=== PATIENT | male | born 1965 | race Caucasian/White ===

== ENCOUNTER 2024-11-27 16:56 | Inpatient (IN) | payer OTHER ==
[~2024-11-27] VITALS: Ht 182.9 cm; Wt 74.6 kg
--- NOTE | 2024-11-27 17:37 | ED.PDOC ---
Musculoskeletal HPI Comments 59 y/o M is BIBA for c/o bilateral feet pain, that worsens with movement and palpation, for the past 2-3 weeks, today. He describes pain as sharp and shooting in quality and being unable to walk and bear weight on his legs, due to pain. Patient reports on recent DVT diagnosis and Xarelto placement (formerly on Plav ix). He denies any recent injuries or any history of rheumatoid disease or gout. Patient denies any chest pain, shortness of breath, numbness, tingling, weakness, fever, chills, or other associated symptoms at this time. Vitals on scene: blood pressure of 158/103, pulse rate of 81, SpO2 of 86%RA, and a respiratory of 18 Vitals upon ED arrival: blood pressure of 165/106, pulse rate of 80, SpO2 of 96% on 6LPM O2, and respiratory rate of 20 Past medical history: DVT's on Xarelto, HTN Past surgical history: denies Aaron: feet pain b/l HPI: Poor Historian. Patient was on Xarelto. Patient states compliance with the medications. Recent diagnosis of bilateral lower extremity DVT. Past Medical History: Past Surgical History: REVIEW OF SYSTEMS: CONSTITUTIONAL: Denies acute: fever, diaphoresis, chills, generalized weakness. HEAD: Denies acute: headache, photophobia Eyes: Denies acute: Double vision, vision loss, eye pain, eye discharge. EARS: Denies acute: tinnitus, hearing loss, ear discharge, ear pain, THROAT: Denies acute: sore throat, swelling, difficulty swallowing , pain with swallowing, change in voice. NECK: Denies acute: neck pain, neck swelling, stiff neck. HEART: Denies acute : chest pain, palpitations, LUNGS: Denies acute: SOB, wheezing, cough, hemoptysis ABDOMEN: Denies acute: abdominal pain, Nausea, Vomiting, diarrhea, melena , hematemesis, hematochezia SKIN: Denies acute: rash, , , itchiness. EXTREMITIES: Denies acute: calf pain, numbness, tingling, weakness, Denies acute: Low back pain. Neuro: Denies acute: focal neurological deficit, motor or sensory focal neurological deficit, tremors, seizure like activity, confusion, dizziness, change in mental status, loss of bowel or bladder function, cauda equina like symptoms. : Denies acute: dysuria, hematuria, flank pain, increase in urinary frequency. PSYCH: Denies acute: hallucination, suicidal ideation, homicidal ideation. PHYSICAL EXAM: General: ---mild-----acute distress, awake and alert. Head: normocephalic, atraumatic. Neck: supple, trachea is midline, no swelling. Throat: Normal phonation. Eyes:, no erythema, no purulent discharge, no proptosis, no icterus. Heart: regular rate, regular rhythm, no significant murmur appreciated. Lungs: no apparent respiratory distress, Able to speak in full sentences. No wheezing, no rhonchi, no crackles. No stridors Clear to auscultation bilaterally. Abdomen: non tender to palpation, non distended, soft, no guarding, no rebound, + bowel sounds. Neuro: Awake, Alert, oriented to name, self, situation, follows commands GCS=15. Speech is normal. Skin: no petechia, no purpura, no cyanosis, non-pale, not jaundice. Lower extremities: --no - Pitting edema no deformity, no calf TTP. Patient is neurovascularly intact in bilateral feet. Patient motor and sensory are present. There is on each feet there is medial and lateral focal points of erythema that is very tender to palpation. Makes eye contact. moves all four extremities. Face: no apparent facial droop Ambulating in the ED independently. Pedal pulses are palpable. ED COURSE: Chief Complaint: Lower Extremity Time Seen by MD: 17:20 Reviewed Notes: Nurses Notes, Medications, Allergies Allergies: Coded Allergies: NO KNOWN ALLERGIES (Unverified , 11/27/24) Home Meds Reported Medications Albuterol Sulfate (Albuterol Sulfate Hfa) 108 Mcg/Act Aer, INH 11/29/24 Minocycline HCl (Minocycline Hydrochloride) 100 Mg Cap, 1 CAP PO BID 11/29/24 Rivaroxaban (Xarelto Tablet) 15 Mg Tb, 1 TAB PO BID 11/29/24 Information Source: Patient Mode of Arrival: EMS Location: Bilateral Past Medical History PAST MEDICAL HISTORY: HTN Past Medical History (Other): DVT on Xarelto Was a procedure done? Was a procedure done?: No Differential Diagnosis EXT Differential Diagnosis: Cellulitis, CHF, Deep Vein Thrombosis, Compartment Syndrome, Fracture, Sprain, Dislocation, Gout, DJD, Myocardial Infarction, Contusion, Strain, Rheumatoid, Septic, Neurovascular injury, Arthritis, Bursitis X-Ray, Labs, Meds, VS Vital Signs Date Time Temp Pulse Resp B/P (MAP) Pulse Ox O2 Delivery O2 Flow Rate FiO2 11/27/24 21:50 136/62 11/27/24 21:47 72 17 125/79 (94) 98 11/27/24 19:30 98.3 68 16 129/87 (101) 100 98.3 11/27/24 19:30 68 16 100 Nasal Cannula* 2 28 11/27/24 18:00 98.4 71 10 159/93 (115) 98 98.4 11/27/24 17:23 98.7 72 24 165/106 (125) 91 98.7 11/27/24 17:17 72 12 154/92 (112) 98 11/27/24 17:00 Room Air* 0 21 Lab Test 11/27/24 20:59 11/27/24 20:20 11/27/24 19:02 11/27/24 18:08 Range/Units Troponin I High Sensitivity < 3 L < 3 L < 3 L </=54 ng/L Urine Color Light-orange Yellow Urine Clarity Clear Clear Urine pH 6.5 5.0-9.0 Urine Specific [place] 1.024 1.001-1.035 Urine Protein Negative Negative Urine Ketones 2+ H Negative Urine Blood Trace H Negative /uL Urine Nitrite Negative Negative Urine Bilirubin Negative Negative Urine Urobilinogen 2 H Negative mg/dL Urine Leukocyte Esterase Negative Negative /uL Urine RBC 17 0 - 3 /hpf Urine Microscopic WBC 3 0-3 /HPF Urine Squamous Epithelial Cells Few <5 /hpf Urine Bacteria Few H None Seen /hpf Urine Mucus Few None Seen Urine Glucose Normal Normal mg/dL White Blood Count 5.6 4.4-10.8 10^3/uL Red Blood Count 4.91 4.5-5.90 10^6/uL Hemoglobin 17.2 13.5-17.5 g/dL Hematocrit 50.5 41.0-53.0 % Mean Corpuscular Volume 103.0 H 80.0-100.0 fL Mean Corpuscular Hemoglobin 35.0 H 28.0-32.0 pg Mean Corpuscular Hemoglobin Concent 34.0 32.0-36.0 g/dL Red Cell Distribution Width 12.7 11.8-14.3 % Platelet Count 239 140-450 10^3/uL Mean Platelet Volume 7.4 6.9-10.8 fL Neutrophils (%) (Auto) 70.5 37.0-80.0 % Lymphocytes (%) (Auto) 13.5 10.0-50.0 % Monocytes (%) (Auto) 13.8 H 0.0-12.0 % Eosinophils (%) (Auto) 1.7 0.0-7.0 % Basophils (%) (Auto) 0.5 0.0-2.0 % Neutrophils # (Auto) 3.9 1.6-8.6 10 ^3/uL Lymphocytes # (Auto) 0.8 0.4-5.4 10 ^3/uL Monocytes # (Auto) 0.8 0-1.3 10 ^3/uL Eosinophils # (Auto) 0.1 0-0.8 10 ^3/uL Basophils # (Auto) 0 0-0.2 10 ^3/uL Nucleated Red Blood Cells 0.0 % Erythrocyte Sedimentation Rate 11 0-20 mm/hr Prothrombin Time 11.4 9.3-11.8 sec Prothrombin Time INR 1.08 0.9-1.15 Activated Partial Thromboplast Time 30.7 24.5-34.5 SEC Sodium Level 138 136-145 mmol/L Potassium Level 4.0 3.5-5.1 mmol/L Chloride Level 102 98-107 mmol/L Carbon Dioxide Level 26 20-31 mmol/L Anion Gap 10 5-15 Blood Urea Nitrogen 10 9-23 mg/dL Creatinine 0.79 0.700-1.30 mg/dL Glomerular Filtration Rate Calc 102 >90 mL/min BUN/Creatinine Ratio 12.7 10.0-20.0 Serum Glucose 90 74-106 mg/dL Uric Acid 6.1 3.7-9.2 mg/dL Calcium Level 9.8 8.7-10.4 mg/dL Total Bilirubin 1.2 H 0.2-1.0 mg/dL Aspartate Amino Transferase (AST) 74 H 13-40 U/L Alanine Aminotransferase (ALT) 47 H 7-40 U/L Alkaline Phosphatase 124 H 46-116 U/L Creatine Kinase 28 L 46-171 U/L C-Reactive Protein High Sensitivity 4.42 H <1.0 mg/dL Total Protein 6.2 5.7-8.2 g/dL Albumin 3.9 3.2-4.8 g/dL Test 11/27/24 17:44 11/27/24 17:33 Range/Units Lactic Acid Level 0.9 0.4-2.0 mmol/L Blood Gas Specimen Type Arterial Blood Gas Sample Site Right radial Blood Gas Patient Temperature 37.0 Arterial Blood Date Drawn [id number] Arterial Blood pH 7.471 H 7.350-7.450 Arterial Blood Partial Pressure CO2 29.6 L 35.0-48.0 mmHg Arterial Blood Partial Pressure O2 60.9 L 83.0-108.0 mmHg Arterial Blood HCO3 21.1 21.0-28.0 mmol/L Arterial Blood Oxygen Saturation 91.6 L 94.0-98.0 % Arterial Blood Base Excess -0.9 -2.0-3.0 mmol/L Arterial Blood Oxyhemoglobin 90.8 L 94.0-98.0 % Arterial Blood Carboxyhemoglobin 0.3 L 0.5-1.5 % Arterial Blood Methemoglobin 0.6 0.0-1.5 % Ryder Test Modified Blood Gas Total Hemoglobin 18.50 *H 13.5-17.5 g/dL Blood Gas Modality Room air FiO2 % 21.0 Blood Gas Critical Value Read Back Yes Blood Gas Notified Whom sawyer Caro md Blood Gas Notified Time [id number] Blood Gas Notified By gurmeet Bajwa rrt [place] [address] Ph: [phone] DIAGNOSTIC IMAGING Diagnostic Imaging Report : [id number] Signed PATIENT: KD WATSON ACCT: [id number] UNIT: [id number] : 1965 LOC: ER ROOM / BED: / AGE / SEX: 59 / M ADM STATUS: REG ER SERVICE 0005 ORDERING PHYSICIAN: BOB CARO DO PROCEDURE(s): RFOOT - R FOOT 3 VIEW XRAY REASON: pain ORDER NUMBER(s): [id number], ACCESSION NUMBER(s): [id number] CLINICAL INDICATION: pain TECHNIQUE: XY R FOOT 3 VIEW XRAY Comparison: None FINDINGS: No osseous or joint abnormality identified with no fracture or dislocation. Joint spaces are normal. Mild arterial calcifications noted. IMPRESSION: No acute abnormality demonstrated. ATED BY: FREDDY GUEVARA MD DICTATED DATE/TIME: 11/27/241903 SIGNED BY: FREDDY GUEVARA MD SIGNED DATE/TIME: 11/27/241903 CC: [place] [address] Ph: [phone] DIAGNOSTIC IMAGING Diagnostic Imaging Report : [id number] Signed PATIENT: KD WATSON ACCT: [id number] UNIT: [id number] : 1965 LOC: ER ROOM / BED: / AGE / SEX: 59 / M ADM STATUS: REG ER SERVICE 07 ORDERING PHYSICIAN: BOB CARO DO PROCEDURE(s): LFOOT - L FOOT 3 VIEW XRAY REASON: pain ORDER NUMBER(s): [id number], ACCESSION NUMBER(s): [id number] CLINICAL INDICATION: pain TECHNIQUE: XY L FOOT 3 VIEW XRAY Comparison: None FINDINGS: No osseous or joint abnormality identified with no fracture or dislocation. Joint spaces are normal. Small calcaneal spur. Mild arterial calcifications n oted. IMPRESSION: No acute abnormality demonstrated. ATED BY: FREDDY GUEVARA MD DICTATED DATE/TIME: 11/27/241905 SIGNED BY: FREDDY GUEVARA MD SIGNED DATE/TIME: 11/27/241905 CC: [place] [address] Ph: [phone] DIAGNOSTIC IMAGING Diagnostic Imaging Report : [id number] Signed PATIENT: KD WATSON ACCT: [id number] UNIT: [id number] : 1965 LOC: ER ROOM / BED: / AGE / SEX: 59 / M ADM STATUS: REG ER SERVICE 21 ORDERING PHYSICIAN: BOB CARO DO PROCEDURE(s): BLDVT - BiLat Lower DVT REASON: BLE swelling/pain ORDER NUMBER(s): [id number], ACCESSION NUMBER(s): [id number] Bilateral lower extremity venous duplex Clinical History: BLE swelling/pain Comparison: None Technique: Duplex Doppler evaluation of the deep venous systems of both lower extremities from the common femoral veins to the popliteal veins including color Doppler and spectral/pulsed waveform analysis was performed. Findings: RIGHT SIDE: The common femoral vein demonstrates appropriate compressibility and waveform variability. There is compressibility/patency of the great saphenous vein at the proximal thigh. The femoral vein demonstrates appropriate compressibility and waveform variability. The popliteal vein demonstrates appropriate compressibility and waveform variability. There is normal compressibility at the tibioperoneal trunk. LEFT SIDE: The common femoral vein demonstrates appropriate compressibility and waveform variability. There is compressibility/patency of the great saphenous vein at the proximal thigh. The proximal to mid superficial femoral vein demonstrates appropriate compressibility and waveform variability. There is evidence of thrombus in the distal superficial femoral vein. The popliteal vein and posterior tibial vein demonstrate evidence of occlusive thrombus. Impression: Evidence of left leg DVT in left distal superficial femoral vein, popiteal vein and posterior tibial vein. No evidence of right femoropopliteal venous thrombosis. ATED BY: FREDDY GUEVARA MD DICTATED DATE/TIME: 11/27/242018 SIGNED BY: FREDDY GUEVARA MD SIGNED DATE/TIME: 11/27/242018 CC: [place] [address] Ph: [phone] DIAGNOSTIC IMAGING Diagnostic Imaging Report : [id number] Signed PATIENT: KD WATSON ACCT: [id number] UNIT: [id number] : 1965 LOC: ER ROOM / BED: / AGE / SEX: 59 / M ADM STATUS: REG ER SERVICE 57 ORDERING PHYSICIAN: BOB CARO DO PROCEDURE(s): CTACH - CT ANGIO CHEST CONTRAST REASON: dvt ORDER NUMBER(s): [id number], ACCESSION NUMBER(s): [id number] EXAM: CT CT ANGIO CHEST CONTRAST History: dvt Comparison Study: None available TECHNIQUE: A digital senior financial accountant image was obtained. During the uneventful, intravenous administration of contrast material, multislice data acquisition was obtained through the chest. 3-D postprocessing is performed by technologist including MIP imaging Radiation Dose : CTDI vol 23.68 mGy, DLP 1067.93 mGy*cm. Findings: Lungs: The lungs are clear. Pleura: Unremarkable Heart/Great vessels: No cardiomegaly or pericardial effusion. No aneurysm or dissection. Bilateral lower lobe subsegmental pulmonary emboli. Mediastinum: Unremarkable Soft tissues/Bones: Mild multilevel degenerative changes of the thoracic spine. The partially visualized upper abdomen is within normal limits. Impression: 1. Bilateral lower lobe subsegmental pulmonary emboli. 2. No evidence of aneurysm or dissection. Critical Result: Pumonary Emboli Findings discussed with BOB CARO at 11/27/2024 09:25 PM, and acknowledged r eceipt and understanding of the findings. ATED BY: SAPNA WOODARD DO DICTATED DATE/TIME: 11/27/242124 SIGNED BY: SAPNA WOODARD DO SIGNED DATE/TIME: 11/27/242124 CC: Time of 1ST Reevaluation: 17:20 Reevaluation 1ST: Unchanged Time of 2ND Reevaluation: 18:21 (All labs are still pending.) Time of 3RD Reevaluation: 21:47 (The case was discussed with the [facility] admitting team (HPI, physical exam, labs and diagnostic tests that were available at the time of disposition, ED course, treatment plan) on the phone. They authorized us to keep the patient our facility given the finding of pulmonary embolus and hypoxemia. Dr. Lewis authorization #[id number]) Patient Education/Counseling: Diagnosis, Treatment Family Education/Counseling: Diagnosis, Treatment Comments Patient presented with the above HPI.--leg pain----workup was initiated. patient was found with the above mentioned diagnosis. the following medications were ordered: please refer to order lists of meds and tests obtained by myself Dr. Caro. Patient ED course and VS have been stabilized. Patient has been reassessed in the ED and remained in a stable condition. Pertinent incidental findings were discussed with the patient and/or family. Patient/family voices understanding and is agreeable with plan. Patient has been observed in the ED adequate length of time to insure improvement/stability. Escalation of care considered: Consideration of escalation to observation or admission [facility] facility was contacted. . Patient was already on anticoagulation at home for recent diagnosis of DVT. Patient was found with PE. Lovenox initiated Patient was ADMITTED to the medicine team for further evaluation and treatment of their presentation. All the reports of any imaging studies that were ordered by myself were reviewed by myself. Departure 1 Departure Time of Disposition: 18:07 Impression: Primary Impression: Bilateral foot pain Additional Impressions: Hypoxemia DVT (deep venous thrombosis) Bilateral pulmonary embolism Disposition: ADMITTED INPATIENT Admit to: Tele Condition: Guarded Discharged With: Self Critical Care Note Critical Care Time?: Yes (35 min-critical care time only) I personally scribed for BOB CARO DO ([email or web address]) on 11/27/24 at 17:37. Electronically submitted by Franko Cabrales ([email or web address]). BOB CARO DO Nov 27, 2024 17:37
[2024-11-27 17:39] LABS: Base Excess -0.9 mmol/L (-2.0-3.0)
[2024-11-27] MEDS: HYDROcodone-ACET 5/325MG TAB PO ONE (17:48)
[2024-11-27 18:33] LABS: Basophils # (auto) 0 10 ^3/uL (0-0.2); Basophils % (auto) 0.5 % (0.0-2.0); Eosinophils # (auto) 0.1 10 ^3/uL (0-0.8); Eosinophils % (auto) 1.7 % (0.0-7.0); Hematocrit 50.5 % (41.0-53.0); Hemoglobin 17.2 g/dL (13.5-17.5); Lymphocytes # (auto) 0.8 10 ^3/uL (0.4-5.4); Lymphocytes % (auto) 13.5 % (10.0-50.0); Monocytes # (auto) 0.8 10 ^3/uL (0-1.3); Monocytes % (auto) 13.8 % (0.0-12.0); Neutrophils # (auto) 3.9 10 ^3/uL (1.6-8.6); Neutrophils % (auto) 70.5 % (37.0-80.0); Platelet Count (auto) 239 10^3/uL (140-450); Red Blood Cells 4.91 10^6/uL (4.5-5.90); Red Cell Distribution Width 12.7 % (11.8-14.3); White Blood Cell 5.6 10^3/uL (4.4-10.8)
[2024-11-27 18:40] LABS: Albumin 3.9 g/dL (3.2-4.8); Anion Gap 10 (5-15); BUN/Creatinine Ratio 12.7 (10.0-20.0); Blood Urea Nitrogen 10 mg/dL (9-23); Calcium 9.8 mg/dL (8.7-10.4); Carbon Dioxide 26 mmol/L (20-31); Chloride 102 mmol/L (98-107); Glucose 90 mg/dL (74-106); Sodium 138 mmol/L (136-145); Total Protein 6.2 g/dL (5.7-8.2); Uric Acid 6.1 mg/dL (3.7-9.2)
[2024-11-27 18:41] LABS: Bilirubin, Total 1.2 mg/dL (0.2-1.0)
[2024-11-27 18:45] LABS: Alanine Aminotransferase 47 U/L (7-40); Alkaline Phosphatase 124 U/L (46-116); Aspartate Aminotransferase 74 U/L (13-40); Creatine Kinase IFCC 28 U/L (46-171)
[2024-11-27 18:49] LABS: INR 1.08 (0.9-1.15); Partial Thromboplastin Time 30.7 SEC (24.5-34.5); Prothrombin Time 11.4 sec (9.3-11.8)
--- NOTE | 2024-11-27 19:06 | DVH ---
CLINICAL INDICATION: pain TECHNIQUE: XY R FOOT 3 VIEW XRAY Comparison: None FINDINGS: No osseous or joint abnormality identified with no fracture or dislocation. Joint spaces are normal. Mild arterial calcifications noted. IMPRESSION: No acute abnormality demonstrated.
--- NOTE | 2024-11-27 19:08 | DVH ---
CLINICAL INDICATION: pain TECHNIQUE: XY L FOOT 3 VIEW XRAY Comparison: None FINDINGS: No osseous or joint abnormality identified with no fracture or dislocation. Joint spaces are normal. Small calcaneal spur. Mild arterial calcifications noted. IMPRESSION: No acute abnormality demonstrated.
[2024-11-27 19:09] LABS: CRP High Sensitivity 4.42 mg/dL (<1.0)
[2024-11-27 19:30] VITALS: PULSE 68; RESP 16; O2SAT 100
[2024-11-27 19:33] LABS: Erythrocyte Sedimentation Rate 11 mm/hr (0-20)
--- NOTE | 2024-11-27 20:21 | DVH ---
Bilateral lower extremity venous duplex Clinical History: BLE swelling/pain Comparison: None Technique: Duplex Doppler evaluation of the deep venous systems of both lower extremities from the common femora l veins to the popliteal veins including color Doppler and spectral/pulsed waveform analysis was perf ormed. Findings: RIGHT SIDE: The common femoral vein demonstrates appropriate compressibility and waveform variability. There is compressibility/patency of the great saphenous vein at the proximal thigh. The femoral vein demonstrates appropriate compressibility and waveform variability. The popliteal vein demonstrates appropriate compressibility and waveform variability. There is normal compressibility at the tibioperoneal trunk. LEFT SIDE: The common femoral vein demonstrates appropriate compressibility and waveform variability. There is compressibility/patency of the great saphenous vein at the proximal thigh. The proximal to mid superficial femoral vein demonstrates appropriate compressibility and waveform va riability. There is evidence of thrombus in the distal superficial femoral vein. The popliteal vein and posterior tibial vein demonstrate evidence of occlusive thrombus. Impression: Evidence of left leg DVT in left distal superficial femoral vein, popiteal vein and posterior tibial vein. No evidence of right femoropopliteal venous thrombosis.
[2024-11-27] MEDS: IOHEXOL 350 MG/ML 100ML IJ ONE (20:24)
[2024-11-27 20:38] LABS: Urine Bacteria FEW /hpf (None Seen); Urine Blood TRACE /uL (Negative); Urine Clarity Clear (Clear); Urine Color Light-Orange (Yellow); Urine Mucus FEW (None Seen); Urine Protein, UAD Negative (Negative); Urine Specific Gravity 1.024 (1.001-1.035); Urine Squamous Epithelial Cell FEW /hpf (<5); Urine Urobilinogen 2 mg/dL (Negative); Urine WBC 3 /HPF (0-3); Urine pH 6.5 (5.0-9.0)
--- NOTE | 2024-11-27 21:27 | DVH ---
EXAM: CT CT ANGIO CHEST CONTRAST History: dvt Comparison Study: None available TECHNIQUE: A digital garment worker image was obtained. During the uneventful, intravenous administration of c ontrast material, multislice data acquisition was obtained through the chest. 3-D postprocessing is performed by technologist including MIP imaging Radiation Dose : CTDI vol 23.68 mGy, DLP 1067.93 mGy*cm. Findings: Lungs: The lungs are clear. Pleura: Unremarkable Heart/Great vessels: No cardiomegaly or pericardial effusion. No aneurysm or dissection. Bilateral lo wer lobe subsegmental pulmonary emboli. Mediastinum: Unremarkable Soft tissues/Bones: Mild multilevel degenerative changes of the thoracic spine. The partially visualized upper abdomen is within normal limits. Impression: 1. Bilateral lower lobe subsegmental pulmonary emboli. 2. No evidence of aneurysm or dissection. Critical Result: Pumonary Emboli Findings discussed with BOB CARO at 11/27/2024 09:25 PM, and acknowledged receipt and understandin g of the findings.
[2024-11-27] MEDS: fentaNYL CITRATE 100 MCG/2 ML VL IV ONE (21:50)
[2024-11-27] MEDS ORDERED: ALBUTEROL SULF 2.5 MG/0.5ML(0.5%) NEB SOLN NEB PRN (22:15)
[2024-11-27] MEDS ORDERED: NITROGLYCERIN 0.4 MG SL TAB SL PRN (22:15)
[2024-11-27] MEDS ORDERED: MORPHINE SULFATE INJ 2 MG/ml SYRG IV PRN (22:15)
[2024-11-27] MEDS ORDERED: ONDANSETRON HCL 4 MG/2 ML VIAL IV PRN (22:15)
[2024-11-27 22:30] VITALS: BP 136/62; PULSE 72; RESP 18; TEMP 98.4; O2SAT 98
[2024-11-27] MEDS: ENOXAPARIN SOD 100 MG/1 ML SYRINGE SC STA (22:42)
--- NOTE | 2024-11-27 23:11 | DVH ---
INDICATION: Transaminitis TECHNIQUE: Multiple real-time sonographic images of the abdomen were obtained. COMPARISON: None FINDINGS: Liver is normal in size measuring 15.8 cm and echogenicity with no lesions identified. There is no intrahepatic or extrahepatic biliary ductal dilatation with the common bile duct measurin g 5 mm. Gallbladder appears unremarkable with no evidence of stones or wall thickening. Right kidney measures 11.9 cm and appears unremarkable with no hydronephrosis. Pancreas is obscured by overlying bowel gas. No fluid collection noted. IMPRESSION: No abnormality demonstrated.
[2024-11-28] VITALS: PULSE 95; RESP 18; O2SAT 96
--- NOTE | 2024-11-28 01:00 | DVHHP2 ---
History of Present Illness Reason for Visit: Bilateral leg pain History of Present Illness 59-year-old male initially presented for evaluation of bilateral leg pain. Patient reports that on 11/20/2024 was diagnosed with left lower extremity DVT. Patient was initially placed on Eliquis and switched to Xarelto. Patient states that over the past three days his right lower extremity became tender with mild swelling. Denies fever or chills. CT angiogram performed in the emergency department revealed bilateral pulmonary embolism. No chest pain or shortness for breath. No other acute complaints Past Medical History DVT and hypertension Past Surgical History Denies Family History Noncontributory Smoke: No ALCOHOL: occassional Drugs: None Lives: with Family Review of Systems Review of Systems Review of systems are currently negative otherwise addressed in HPI. Allergies: Coded Allergies: NO KNOWN ALLERGIES (Unverified , 11/27/24) Medications Current Medications Medications Dose Ordered Sig/Tere Route Start Time Stop Time Status Last Admin Dose Admin Enoxaparin Sodium 80 mg Q12HR SC 11/28/24 10:00 Lisinopril 10 mg DAILY PO 11/28/24 10:00 Albuterol 2.5 mg Q6HPRN PRN NEB 11/27/24 22:15 Acetaminophen/ Hydrocodone Bitart 1 tab Q4HP PRN PO 11/27/24 22:15 Ondansetron HCl 4 mg Q4HP PRN IV 11/27/24 22:15 Acetaminophen 650 mg Q6HP PRN PO 11/27/24 22:15 Nitroglycerin 0.4 mg Q5MINP PRN SL 11/27/24 22:15 Morphine Sulfate 2 mg Q30M PRN IV 11/27/24 22:15 Exam Vital Signs Vital Signs Date Time Temp Pulse Resp B/P (MAP) Pulse Ox O2 Delivery O2 Flow Rate FiO2 11/28/24 00:00 78 11/27/24 22:30 98.4 18 136/62 98 2.0 28 98.4 11/27/24 17:00 Room Air* Exam Gen: 59-year-old male in mild distress Skin: Warm, dry, normal color and texture, no rash. HEENT: Normocephalic atraumatic, mucous membranes moist and pink. Neck: Cervical and supraclavicular nodes normal without enlargement, trachea is midline, thyroid gland is normal without masses. Pulmonary: Diminished breath sounds bilaterally Cardiac: Regular rate and rhythm. No murmur Abdomen: Soft, nontender, nondistended, bowel sounds present all 4 quadrants, no guarding, no rigidity, no organomegaly. Extremities: No cyanosis, clubbing, bilateral calf tenderness Neuro: Cranial nerves II through XII grossly intact, normal affect and speech, no focal motor deficits. Labs/Xrays ORDERING PHYSICIAN: BOB CARO DO PROCEDURE(s): BLDVT - BiLat Lower DVT REASON: BLE swelling/pain ORDER NUMBER(s): [id number], ACCESSION NUMBER(s): [id number] Bilateral lower extremity venous duplex Clinical History: BLE swelling/pain Comparison: None Technique: Duplex Doppler evaluation of the deep venous systems of both lower extremities from the common femoral veins to the popliteal veins including color Doppler and spectral/pulsed waveform analysis was performed. Findings: RIGHT SIDE: The common femoral vein demonstrates appropriate compressibility and waveform variability. There is compressibility/patency of the great saphenous vein at the proximal thigh. The femoral vein demonstrates appropriate compressibility and waveform variability. The popliteal vein demonstrates appropriate compressibility and waveform variability. There is normal compressibility at the tibioperoneal trunk. LEFT SIDE: The common femoral vein demonstrates appropriate compressibility and waveform variability. There is compressibility/patency of the great saphenous vein at the proximal thigh. The proximal to mid superficial femoral vein demonstrates appropriate compressibility and waveform variability. There is evidence of thrombus in the distal superficial femoral vein. The popliteal vein and posterior tibial vein demonstrate evidence of occlusive thrombus. Impression: Evidence of left leg DVT in left distal superficial femoral vein, popiteal vein and posterior tibial vein. No evidence of right femoropopliteal venous thrombosis. ATED BY: FREDDY GUEVARA MD DICTATED DATE/TIME: 11/27/242018 SIGNED BY: FREDDY GUEVARA MD SIGNED DATE/TIME: 11/27/242018 ORDERING PHYSICIAN: BOB CARO DO PROCEDURE(s): CTACH - CT ANGIO CHEST CONTRAST REASON: dvt ORDER NUMBER(s): [id number], ACCESSION NUMBER(s): [id number] EXAM: CT CT ANGIO CHEST CONTRAST History: dvt Comparison Study: None available TECHNIQUE: A digital ex assistant/program director image was obtained. During the uneventful, intravenous administration of contrast material, multislice data acquisition was obtained through the chest. 3-D postprocessing is performed by technologist including MIP imaging Radiation Dose : CTDI vol 23.68 mGy, DLP 1067.93 mGy*cm. Findings: Lungs: The lungs are clear. Pleura: Unremarkable Heart/Great vessels: No cardiomegaly or pericardial effusion. No aneurysm or dissection. Bilateral lower lobe subsegmental pulmonary emboli. Mediastinum: Unremarkable Soft tissues/Bones: Mild multilevel degenerative changes of the thoracic spine. The partially visualized upper abdomen is within normal limits. Impression: 1. Bilateral lower lobe subsegmental pulmonary emboli. 2. No evidence of aneurysm or dissection. Critical Result: Pumonary Emboli Findings discussed with BOB CARO at 11/27/2024 09:25 PM, and acknowledged receipt and understanding of the findings. RING PHYSICIAN: LING TURNER PROCEDURE(s): LIVUS - LIVER REASON: Transaminitis ORDER NUMBER(s): [id number], ACCESSION NUMBER(s): [id number] INDICATION: Transaminitis TECHNIQUE: Multiple real-time sonographic images of the abdomen were obtained. COMPARISON: None FINDINGS: Liver is normal in size measuring 15.8 cm and echogenicity with no lesions identified. There is no intrahepatic or extrahepatic biliary ductal dilatation with the common bile duct measuring 5 mm. Gallbladder appears unremarkable with no evidence of stones or wall thickening. Right kidney measures 11.9 cm and appears unremarkable with no hydronephrosis. Pancreas is obscured by overlying bowel gas. No fluid collection noted. IMPRESSION: No abnormality demonstrated. Labs Test 11/27/24 22:37 11/27/24 20:59 11/27/24 20:20 11/27/24 18:08 Range/Units Troponin I High Sensitivity < 3 L </=54 ng/L Urine Color Light-orange Yellow Urine Clarity Clear Clear Urine pH 6.5 5.0-9.0 Urine Specific [place] 1.024 1.001-1.035 Urine Protein Negative Negative Urine Ketones 2+ H Negative Urine Blood Trace H Negative /uL Urine Nitrite Negative Negative Urine Bilirubin Negative Negative Urine Urobilinogen 2 H Negative mg/dL Urine Leukocyte Esterase Negative Negative /uL Urine RBC 17 0 - 3 /hpf Urine Microscopic WBC 3 0-3 /HPF Urine Squamous Epithelial Cells Few <5 /hpf Urine Bacteria Few H None Seen /hpf Urine Mucus Few None Seen Urine Glucose Normal Normal mg/dL White Blood Count 5.6 4.4-10.8 10^3/uL Red Blood Count 4.91 4.5-5.90 10^6/uL Hemoglobin 17.2 13.5-17.5 g/dL Hematocrit 50.5 41.0-53.0 % Mean Corpuscular Volume 103.0 H 80.0-100.0 fL Mean Corpuscular Hemoglobin 35.0 H 28.0-32.0 pg Mean Corpuscular Hemoglobin Concent 34.0 32.0-36.0 g/dL Red Cell Distribution Width 12.7 11.8-14.3 % Platelet Count 239 140-450 10^3/uL Mean Platelet Volume 7.4 6.9-10.8 fL Neutrophils (%) (Auto) 70.5 37.0-80.0 % Lymphocytes (%) (Auto) 13.5 10.0-50.0 % Monocytes (%) (Auto) 13.8 H 0.0-12.0 % Eosinophils (%) (Auto) 1.7 0.0-7.0 % Basophils (%) (Auto) 0.5 0.0-2.0 % Neutrophils # (Auto) 3.9 1.6-8.6 10 ^3/uL Lymphocytes # (Auto) 0.8 0.4-5.4 10 ^3/uL Monocytes # (Auto) 0.8 0-1.3 10 ^3/uL Eosinophils # (Auto) 0.1 0-0.8 10 ^3/uL Basophils # (Auto) 0 0-0.2 10 ^3/uL Nucleated Red Blood Cells 0.0 % Erythrocyte Sedimentation Rate 11 0-20 mm/hr Prothrombin Time 11.4 9.3-11.8 sec Prothrombin Time INR 1.08 0.9-1.15 Activated Partial Thromboplast Time 30.7 24.5-34.5 SEC Sodium Level 138 136-145 mmol/L Potassium Level 4.0 3.5-5.1 mmol/L Chloride Level 102 98-107 mmol/L Carbon Dioxide Level 26 20-31 mmol/L Anion Gap 10 5-15 Blood Urea Nitrogen 10 9-23 mg/dL Creatinine 0.79 0.700-1.30 mg/dL Glomerular Filtration Rate Calc 102 >90 mL/min BUN/Creatinine Ratio 12.7 10.0-20.0 Serum Glucose 90 74-106 mg/dL Uric Acid 6.1 3.7-9.2 mg/dL Calcium Level 9.8 8.7-10.4 mg/dL Total Bilirubin 1.2 H 0.2-1.0 mg/dL Aspartate Amino Transferase (AST) 74 H 13-40 U/L Alanine Aminotransferase (ALT) 47 H 7-40 U/L Alkaline Phosphatase 124 H 46-116 U/L Creatine Kinase 28 L 46-171 U/L C-Reactive Protein High Sensitivity 4.42 H <1.0 mg/dL Total Protein 6.2 5.7-8.2 g/dL Albumin 3.9 3.2-4.8 g/dL Test 11/27/24 17:44 11/27/24 17:33 Range/Units Lactic Acid Level 0.9 0.4-2.0 mmol/L Blood Gas Specimen Type Arterial Blood Gas Sample Site Right radial Blood Gas Patient Temperature 37.0 Arterial Blood Date Drawn [id number] Arterial Blood pH 7.471 H 7.350-7.450 Arterial Blood Partial Pressure CO2 29.6 L 35.0-48.0 mmHg Arterial Blood Partial Pressure O2 60.9 L 83.0-108.0 mmHg Arterial Blood HCO3 21.1 21.0-28.0 mmol/L Arterial Blood Oxygen Saturation 91.6 L 94.0-98.0 % Arterial Blood Base Excess -0.9 -2.0-3.0 mmol/L Arterial Blood Oxyhemoglobin 90.8 L 94.0-98.0 % Arterial Blood Carboxyhemoglobin 0.3 L 0.5-1.5 % Arterial Blood Methemoglobin 0.6 0.0-1.5 % Ryder Test Modified Blood Gas Total Hemoglobin 18.50 *H 13.5-17.5 g/dL Blood Gas Modality Room air FiO2 % 21.0 Blood Gas Critical Value Read Back Yes Blood Gas Notified Whom sawyer Caro md Blood Gas Notified Time [id number] Blood Gas Notified By gurmeet Bajwa rrt Assessment/Plan Assessment/Plan Assessment Bilateral pulmonary embolism Hypoxemia Left lower extremity DVT Right lower extremity cellulitis Transaminitis Plan Admit the patient to telemetry to the hospitalist Echocardiogram pending Pulmonary consultation Lovenox b.i.d. Rocephin Med nebs Continue treatment per orders. Plan discussed with: Patient My Orders Orders - TURNERLINGFLACO AGACNP Procedure Category Date Status Time Enoxaparin Sodium PHA 11/28/24 In Process (Lovenox) 10:00 Lisinopril Tablet PHA 11/28/24 In Process (Zestril Tablet) 10:00 Acute Hepatitis Panel LAB 11/27/24 In Process 22:11 LIVER US 11/27/24 Resulted 22:11 *Consult CONS 11/27/24 Transmitted / 22:11 Albuterol Medneb PHA 11/27/24 In Process (Ventolin Medneb) 22:15 Admit ADMIT 11/27/24 Transmitted 22:11 Hydrocodone-Acet PHA 11/27/24 In Process 5/325mg Tab ([place] 22:15 Ondansetron Hcl PHA 11/27/24 In Process (Zofran) 22:15 Comprehensive LAB 11/28/24 Logged Metabolic Panel 04:00 Cardiac DIET 11/28/24 Transmitted Diet-2gna,Lofat,Lochol Breakfast Echo 2d Mode Cardiac US 11/27/24 Logged DOP 22:11 Condition: Fair KEIKO 11/27/24 In Process 22:11 Acetaminophen Tablet PHA 11/27/24 In Process (Tylenol Tablet) 22:15 Bedrest With Bathroom KEIKO 11/27/24 In Process Privileg 22:11 Nitroglycerin PHA 11/27/24 In Process Sublingual (Ntrostat 22:15 Morphine Sulfate PHA 11/27/24 In Process Injection 22:15 Stat Ekg For Chest KEIKO 11/27/24 In Process Pain 22:11 Notify Of Changes KEIKO 11/27/24 In Process From Base 22:11 [place] Painter For KEIKO 11/27/24 In Process 24 Hours 22:11 Emergency Dysrhythmia KEIKO 11/27/24 In Process Protocol 22:11 Rhythm Strips Once KEIKO 11/27/24 In Process Every Shift 22:11 Oxygen By Nasal RT 11/27/24 Transmitted Cannula 22:11 Date of Service: Nov 27, 2024 Billing Provider: LING TURNER Common Visit Codes: [id number] INP/OBS CARE (HIGH) LING TURNER Nov 28, 2024 01:00
[2024-11-28] MEDS: cefTRIAXone 1GM/50ML D5W 50 ML IV SCH (01:50)
[2024-11-28] MEDS: HYDROcodone-ACET 5/325MG TAB PO PRN (01:58)
[2024-11-28 05:29] LABS: Albumin 4.1 g/dL (3.2-4.8); Anion Gap 8 (5-15); BUN/Creatinine Ratio 13.4 (10.0-20.0); Blood Urea Nitrogen 11 mg/dL (9-23); Calcium 9.9 mg/dL (8.7-10.4); Carbon Dioxide 27 mmol/L (20-31); Chloride 101 mmol/L (98-107); Glucose 83 mg/dL (74-106); Potassium 4.4 mmol/L (3.5-5.1); Total Protein 6.6 g/dL (5.7-8.2)
[2024-11-28 05:32] LABS: Alanine Aminotransferase 44 U/L (7-40); Alkaline Phosphatase 119 U/L (46-116); Aspartate Aminotransferase 50 U/L (13-40); Bilirubin, Total 1.6 mg/dL (0.2-1.0); Sodium 136 mmol/L (136-145)
[2024-11-28 06:33] VITALS: O2SAT 98
[2024-11-28 07:30] VITALS: PULSE 85; RESP 20; O2SAT 95
[2024-11-28] MEDS: LISINOPRIL 5 MG TAB PO SCH (10:45)
[2024-11-28] MEDS: ENOXAPARIN SOD 100 MG/1 ML SYRINGE SC SCH (10:45)
--- NOTE | 2024-11-28 11:00 | DVH ---
EXAM: CT Head Without Intravenous Contrast CLINICAL INDICATION: Reason TECHNIQUE: Axial computed tomography images of the head/brain without intravenous contrast. This CT exam was performed using one or more of the following dose reduction techniques: automated exposure control, adjustment of the mA and/or kV according to patient size, and/or use of iterative reconstru ction technique. CONTRAST: RADIATION DOSE: CTDIvol = 59.63 mGy, DLP = 1075.0 mGy-cm COMPARISON: None FINDINGS: BRAIN AND EXTRA-AXIAL SPACES: No acute intracranial hemorrhage, midline shift or mass effect. If sy mptoms persist, further evaluation with MRI is recommended. No significant white matter disease. BONES/JOINTS: Unremarkable. No acute fracture. SOFT TISSUES: Unremarkable. SINUSES: Mucosal thickening of the right maxillary sinus. MASTOID AIR CELLS: Unremarkable as visualized. No mastoid effusion. OTHER FINDINGS: . . IMPRESSION: No acute intracranial hemorrhage, midline shift or mass effect. If symptoms persist, further evaluat ion with MRI is recommended.
--- NOTE | 2024-11-28 12:25 | DVH ---
EXAM: US Duplex Bilateral Lower Extremities Arteries CLINICAL INDICATION: PVD TECHNIQUE: Real-time duplex ultrasound scan of the bilateral lower extremity arteries integrating B- mode two-dimensional vascular structure, Doppler spectral analysis and color flow Doppler imaging. COMPARISON: None FINDINGS: RIGHT COMMON FEMORAL ARTERY: No acute findings. No occlusion or significant stenosis on color flow and spectral Doppler imaging. Normal waveform. RIGHT SUPERFICIAL FEMORAL ARTERY: Peak systolic velocity in the right superficial femoral artery is 105 cm/s. Triphasic waveform. RIGHT POPLITEAL ARTERY: Peak systolic velocity in the right popliteal artery is 79 cm/s. Triphasic waveform. RIGHT CALF/FOOT ARTERIES: Peak systolic velocity in the right posterior tibial artery is 68 cm/s. Triphasic waveform. Right DPA triphasic. LEFT COMMON FEMORAL ARTERY: No acute findings. No occlusion or significant stenosis on color flow and spectral Doppler imaging. Normal waveform. LEFT SUPERFICIAL FEMORAL ARTERY: Peak systolic velocity in the left superficial femoral artery is 1 04 cm/s. Triphasic waveform. LEFT POPLITEAL ARTERY: Peak systolic velocity in the left popliteal artery is 72 cm/s. Triphasic w aveform. LEFT CALF/FOOT ARTERIES: Peak systolic velocity in the left posterior tibial artery is 71 cm/s. Tr iphasic waveform. Peak systolic velocity in the left dorsalis pedis artery is 33 cm/s. Triphasic wa veform. SOFT TISSUES: Unremarkable. OTHER FINDINGS: . . IMPRESSION: No acute findings in the bilateral lower extremity arteries.
--- NOTE | 2024-11-28 13:00 | DVHPN2 ---
Subjective Seen and examined at bedside, patients daughters also present at bedside. Patient has had two other admissions recently: at [facility] last week was discharged home on Eliquis, few days later was admitted at [place] and was discharged with Xarelto for DVT. Nonetheless, patient now reports or worsening lower ext pain and swelling. No recent immobilizations or surgeries. However, patient does report of significant unintentional weight loss over the past 6-8 months and loss of appetite. Patients last colonoscopy was over 10 years ago which was normal. We will continue Lovenox. Get MRI Abd to evaluate liver, possible malignancy causing a hypercoagulable state??? Changes from previous H/P or p: No Changes Objective Vitals Vital Signs Date Time Temp Pulse Resp B/P (MAP) Pulse Ox O2 Delivery O2 Flow Rate FiO2 11/28/24 12:00 71 11/28/24 10:45 135/92 11/28/24 07:30 20 95 Room Air* 0 21 11/28/24 07:30 98.1 98.1 Exam Gen: in bed moderate distress Cvs: Tachycardic Resp: Diminished Abd: Soft, NT Sand Plant Attendant: AAO x 3 Ext: Left LE Swelling and redness Medications Current Medications Medications Dose Ordered Sig/Tere Route Start Time Stop Time Status Last Admin Dose Admin Enoxaparin Sodium 80 mg Q12HR SC 11/28/24 10:00 11/28/24 10:45 80 MG Lisinopril 10 mg DAILY PO 11/28/24 10:00 11/28/24 10:45 10 MG Albuterol 2.5 mg Q6HPRN PRN NEB 11/27/24 22:15 Acetaminophen/ Hydrocodone Bitart 1 tab Q4HP PRN PO 11/27/24 22:15 11/28/24 06:07 1 TAB Ondansetron HCl 4 mg Q4HP PRN IV 11/27/24 22:15 Acetaminophen 650 mg Q6HP PRN PO 11/27/24 22:15 Nitroglycerin 0.4 mg Q5MINP PRN SL 11/27/24 22:15 Morphine Sulfate 2 mg Q30M PRN IV 11/27/24 22:15 Ceftriaxone Sodium 50 ml @ 100 mls/hr DAILY@09 IV 11/28/24 01:30 11/28/24 01:50 100 MLS/HR Laboratory Results Laboratory Tests 11/27/24 18:08 11/28/24 05:04 Chemistry Test 11/27/24 18:08 11/28/24 05:04 Albumin 3.9 g/dL (3.2-4.8) 4.1 g/dL (3.2-4.8) Calcium Level 9.8 mg/dL (8.7-10.4) 9.9 mg/dL (8.7-10.4) Total Protein 6.2 g/dL (5.7-8.2) 6.6 g/dL (5.7-8.2) Coagulation Test 11/27/24 18:08 Prothrombin Time 11.4 sec (9.3-11.8) Prothrombin Time INR 1.08 (0.9-1.15) Activated Partial Thromboplast Time 30.7 SEC (24.5-34.5) LFT Test 11/27/24 18:08 11/28/24 05:04 Alanine Aminotransferase (ALT) 47 U/L (7-40) H 44 U/L (7-40) H Alkaline Phosphatase 124 U/L (46-116) H 119 U/L (46-116) H Aspartate Amino Transferase (AST) 74 U/L (13-40) H 50 U/L (13-40) H Total Bilirubin 1.2 mg/dL (0.2-1.0) H 1.6 mg/dL (0.2-1.0) H Urinalysis Test 11/27/24 20:20 Urine Color Light-orange (Yellow) Urine Clarity Clear (Clear) Urine pH 6.5 (5.0-9.0) Urine Specific [place] 1.024 (1.001-1.035) Urine Protein Negative (Negative) Urine Ketones 2+ (Negative) H Urine Blood Trace /uL (Negative) H Urine Nitrite Negative (Negative) Urine Bilirubin Negative (Negative) Urine Urobilinogen 2 mg/dL (Negative) H Urine Leukocyte Esterase Negative /uL (Negative) Urine RBC 17 /hpf (0 - 3) Urine Microscopic WBC 3 /HPF (0-3) Urine Squamous Epithelial Cells Few /hpf (<5) Urine Bacteria Few /hpf (None Seen) H Urine Mucus Few (None Seen) Urine Glucose Normal mg/dL (Normal) Blood Gas Results Test 11/27/24 17:33 Arterial Blood pH 7.471 (7.350-7.450) FiO2 % 21.0 Assessment/Plan Assessment/Plan # Acute Hypoxic Resp Failure - Titrate Oxygen as tolerated # Pulm Embolism due to DVT - Lovenox Subq # Lower Ext Left DVT - Lovenox Subq # Weight loss - Rule out malignancy # Transaminitis - MRI Abd # UTI? - Rocephin Critical care time 45 mins Plan discussed with: Patient, Daughter My Orders Orders - GRETA PEPPER MD Procedure Category Date Status Time Bilat Low Ext Art US 11/28/24 Resulted Duplex 10:20 Mri Abd & Plevis W/Wo MRI 11/28/24 Logged Cont 10:20 Carcinoembryonic LAB 11/28/24 In Process Antigen 10:20 Afp Serum Tumor Marker LAB 11/28/24 In Process 10:20 Carbohydrate Antigen LAB 11/28/24 In Process 19-9 Psa Total+% Free LAB 11/28/24 In Process 10:20 Comprehensive LAB 11/28/24 In Process Hepatitis Panel 10:[address] 11/28/24 Resulted 10:23 Mra Angio Head Brain MRI 11/28/24 Logged 11:45 Date of Service: Nov 28, 2024 Billing Provider: GRETA PEPPER MD Common Visit Codes: [id number] CARE 30-74 MIN GRETA PEPPER MD Nov 28, 2024 13:00
--- NOTE | 2024-11-28 14:32 | DVHSR ---
APPROVED REPORT EXAM: Two-dimensional and M-mode echocardiogram with Doppler and color Doppler. Blood Pressure: 113/86 mmHg INDICATION PE RISK FACTORS Height: 6', Weight: 185 DIMENSIONS LVDd4.8 (3.8-5.7cm)LA (2D)3.6 (1.9-4.0cm)Aortic Root3.9 (2.0-3.7cm) LVDs3.4 (2.5-4.0cm)LA (MM) (1.9-4.0cm)Aortic Cusp Exc1.7 (1.5-2.0cm) EF (%) 56.0 (55-70%)Rt. Atrium3.4 (1.9-4.0cm)Asc. Aorta cm IVSd1.1 (0.7-1.1cm)RV (D) (1.8-2.4cm) PWd1.0 (0.7-1.1cm) Mitral Valve MitralMitral Stenosis E wave0.60m/sMV Mean GR.mmHg A wave1.00m/sMV Peak GR.mmHg E/A ratio0.62D MVAcm2 Aortic Valve Aortic ValveAortic Stenosis V11.00m/Ana Paula Mean GR.5mmHg V21.50m/Ana Paula Peak GR.9mmHg LVOT Diameter2.3 (1.8-2.4cm)Doppler AVA2.77cm2 Conclusion lvef 60% by visual estimate normal rv function leftl atria enlarged no severe valve abnormalities noted
[2024-11-28 19:05] VITALS: O2SAT 97
[2024-11-28 19:40] VITALS: PULSE 86; RESP 17; O2SAT 97
[2024-11-29] VITALS (9 sets, daily range): BP systolic 105–132; BP diastolic 5–82; PULSE 65–98; RESP 16–18; TEMP 97.4–97.5; O2SAT 97–100
[2024-11-29 03:57] LABS: Base Excess -0.5 mmol/L (-2.0-3.0)
[2024-11-29 05:39] LABS: Basophils # (auto) 0 10 ^3/uL (0-0.2); Eosinophils # (auto) 0 10 ^3/uL (0-0.8)
[2024-11-29 05:45] LABS: Basophils % (auto) 0.6 % (0.0-2.0); Eosinophils % (auto) 0.7 % (0.0-7.0); Hematocrit 50.3 % (41.0-53.0); Hemoglobin 17.5 g/dL (13.5-17.5); Lymphocytes # (auto) 0.7 10 ^3/uL (0.4-5.4); Lymphocytes % (auto) 13.9 % (10.0-50.0); Mean Corpuscular Hemoglobin 35.7 pg (28.0-32.0); Mean Corpuscular Hgb Conc. 34.9 g/dL (32.0-36.0); Mean Corpuscular Volume 102.5 fL (80.0-100.0); Monocytes # (auto) 0.8 10 ^3/uL (0-1.3); Monocytes % (auto) 14.1 % (0.0-12.0); Neutrophils # (auto) 3.8 10 ^3/uL (1.6-8.6); Neutrophils % (auto) 70.7 % (37.0-80.0); Nucleated Red Blood Cells % 0.3 %; Platelet Count (auto) 259 10^3/uL (140-450); Red Cell Distribution Width 12.3 % (11.8-14.3); White Blood Cell 5.4 10^3/uL (4.4-10.8)
[2024-11-29 05:56] LABS: INR 1.05 (0.9-1.15); Partial Thromboplastin Time 32.5 SEC (24.5-34.5); Prothrombin Time 11.1 sec (9.3-11.8)
[2024-11-29 06:34] LABS: Albumin 4.1 g/dL (3.2-4.8); Anion Gap 9 (5-15); BUN/Creatinine Ratio 14.3 (10.0-20.0); Blood Urea Nitrogen 11 mg/dL (9-23); Calcium 9.9 mg/dL (8.7-10.4); Carbon Dioxide 26 mmol/L (20-31); Chloride 99 mmol/L (98-107); Glucose 97 mg/dL (74-106); Magnesium 1.9 mg/dL (1.6-2.6); Phosphorus 3.6 mg/dL (2.4-5.1); Total Protein 6.6 g/dL (5.7-8.2)
[2024-11-29 06:36] LABS: Alanine Aminotransferase 42 U/L (7-40); Alkaline Phosphatase 122 U/L (46-116); Aspartate Aminotransferase 48 U/L (13-40); Bilirubin, Total 1.3 mg/dL (0.2-1.0); Sodium 134 mmol/L (136-145)
[2024-11-29 06:46] LABS: Triglycerides 145 mg/dL (< 150)
[2024-11-29 06:48] LABS: Cholesterol 161 mg/dL (< 200)
[2024-11-29 06:51] LABS: HDL Cholesterol 30 mg/dL (40-59); LDL Cholesterol 107 mg/dL (< 100)
[2024-11-29 10:19] LABS: Hepatitis B Core Total AB Negative (Negative)
[2024-11-29 10:27] LABS: Hepatitis A Ab IgM Negative; Hepatitis B Core IgM Negative (Negative); Hepatitis B Surface Antigen Negative (Negative); Hepatitis C Antibody Negative (Negative)
[2024-11-29 10:30] LABS: Hepatitis A Total Antibody Positive (Negative); Hepatitis B Surface Antibody Negative (Negative); Hepatitis B Surface Antigen Negative (Negative); Hepatitis C Antibody Negative (Negative)
[2024-11-29] MEDS: COLCHICINE 0.6 MG CAP PO ONE (13:29)
--- NOTE | 2024-11-29 14:17 | DVHPNRES ---
Progress Note Date Seen: Nov 29, 2024 Resident Creating Document: JORGE MARCANO RESIDENT Has the PT tested + for MRSA If YES, has PT been informed?: No Medical Necessity Reason Pt with a Central, PICC or Fol: No Subjective Review of Systems This is a 59-year-old male with past medical history of hypertension and previous history of DVT who presented to the ED for further evaluation of bilateral leg pain. The patient reported that he was recently diagnosed with left lower extremity DVT on 11/20/2024 and was discharged initially on Eliquis from [facility]. Afterwards he went to another hospital where he had similar diagnosis one week later and he was switched to Xarelto 50 mg b.i.d.. Patient reported that he has been feeling right lower extremity swelling and tenderness since the past three days. Patient denied fever/chills, chest pain, shortness of breath or any other associated symptoms at this time. Initial labs showed a CBC in normal range, BNP was unremarkable as well. AST, ALT total bilirubin and alkaline phosphatase were all elevated. Right and left foot x-ray were both unremarkable. Bilateral lower venous Doppler was performed showing left leg DVT in the left distal superficial femoral vein, popliteal vein and posterior tibialis pain. A CT angio of the chest was performed showing bilateral lower subsegmental pulmonary embolism. Patient was started on enoxaparin therapeutic dose and was admitted for further assessment and management of DVT and PE. Patient seen and examined at bedside. Patient is hemodynamically stable and currently saturating 98% on room air, blood pressure has been on normal range at this time. CT angio of the chest was performed showing bilateral lower lobe subsegmental pulmonary embolism for which the patient was started on enoxaparin therapeutic dose 80 mg q.12. We ordered an MRI of the abdomen with and without contrast to rule out any malignancy which could be explaining the hypercoagulable state. Patient also is alert but disoriented and having occasional visual hallucinations. We will start the patient on IV banana bag and order another urinalysis. Patient was also complaining of right big toe inflammation likely consistent with a gout attack. Started the patient on colchicine 1.2 mg loading dose and we will continue 0.6 mg daily. ROS unable to obtain pertinent due to patient having possible delirium. Objective vital signs Vital Sign Date Time Temp Pulse Resp B/P (MAP) Pulse Ox O2 Delivery O2 Flow Rate FiO2 11/29/24 13:00 76 17 109/75 (86) 98 11/29/24 07:45 98.2 98.2 11/29/24 07:45 Room Air* 0 21 medications Current Medications Medications Dose Ordered Sig/Tere Route Start Time Stop Time Status Last Admin Dose Admin Enoxaparin Sodium 80 mg Q12HR SC 11/28/24 10:00 11/29/24 10:37 80 MG Lisinopril 10 mg DAILY PO 11/28/24 10:00 11/29/24 10:38 10 MG Albuterol 2.5 mg Q6HPRN PRN NEB 11/27/24 22:15 Acetaminophen/ Hydrocodone Bitart 1 tab Q4HP PRN PO 11/27/24 22:15 11/28/24 06:07 1 TAB Ondansetron HCl 4 mg Q4HP PRN IV 11/27/24 22:15 Acetaminophen 650 mg Q6HP PRN PO 11/27/24 22:15 Nitroglycerin 0.4 mg Q5MINP PRN SL 11/27/24 22:15 Morphine Sulfate 2 mg Q30M PRN IV 11/27/24 22:15 Ceftriaxone Sodium 50 ml @ 100 mls/hr DAILY@09 IV 11/28/24 01:30 11/29/24 09:19 100 MLS/HR Colchicine 0.6 mg DAILY PO 11/30/24 10:00 Examination Physical Examination General: Patient alert but disoriented and having delirium with visual hallucinations. Patient follows commands. HEENT: Normocephalic, atraumatic, moist mucous membranes Respiratory/pulmonary: Clear lungs bilaterally, no associated crackles or wheezes. Cardiovascular: Normal heart sounds S1 and S2 with no associated murmurs Abdomen: Abdomen nondistended, there is no pain to palpation in any of the abdominal quadrants, no palpable masses. Extremities: There is right big toe inflammation likely due to gout attack. There is no peripheral edema present at the lower extremities. Peripheral Pulses: 3+ Radial (R). 3+ Radial (L). 3+ Dorsalis pedis (R). 3+ Dorsalis pedis(L) Skin: No rashes or pruritus, there is no sacral edema present at this time. Neurological: Intact cranial nerves with no focal neurologic deficits laboratory and microbiology Laboratory Tests 11/29/24 05:15 Test 11/29/24 05:15 Range/Units Serum Glucose 97 74-106 mg/dL Microbiology Date/Time Source Procedure Growth Status 11/28/24 01:45 Blood Blood Culture - Preliminary NO GROWTH AFTER 24 HOURS OF INCUBATION. Resulted Problem List/Assessment/Plan Problem List/Assessment/Plan Assessment/Plan Acute hypoxic respiratory distress likely due to pulmonary embolism Acute DVT on left lower extremity -bilateral lower extremity venous Doppler showing left leg DVT in the left distal superficial femoral vein, popliteal vein and posterior tibialis vein -CT angio of the chest is showing bilateral lower lobe subsegmental pulmonary embolism -patient is currently on enoxaparin therapeutic dose 80 mg q.12 -currently on room air saturating 98% -monitor saturation closely -monitor blood pressure and vitals signs closely -Ordered MRI of the abdomen w and w/o contrast to R/O malignancy Acute metabolic/toxic encephalopathy, likely due to sepsis -Patient is having delirium, disoriented -Ammonium was on normal range Acute transaminitis and hyperbilirrubinemia -Liver U/S was unremarkable -trend liver enzymes UTI -UA suggestive of UTI -IV ceftriaxone Acute gout flare -colchicine 1.2 mg loading dose -continue colchicine 0.6 mg daily Primary hypertension -continue lisinopril 10 mg daily -monitor blood pressure closely Possible hypothyroidism -TSH:9.96 -Ordered Free T4 Goals of care discussed with the daughter and family at bedside for > 25min Plan discussed with Dr. Dominguez Plan discussed with: Patient, Daughter, Other My Orders My Orders Orders - JORGE MARCANO Procedure Category Date Status Time Colchicine (Colcrys) PHA 11/30/24 In Process 10:00 Date of Service: Nov 29, 2024 Billing Provider: GRETA DOMINGUEZ MD Common Visit Codes: [id number] INP/OBS CARE(HIGH) JORGE MARCANO Nov 29, 2024 14:17 GRETA DOMINGUEZ MD Nov 29, 2024 18:35
--- NOTE | 2024-11-29 16:00 | DVH ---
EXAMINATION: MRI BRAIN HEAD WO CONTRAST INDICATION: RECCOMENDATION FROM CT, TIA COMPARISON: None TECHNIQUE: Multiplanar, multisequence magnetic resonance imaging of the brain was performed without the use of i ntravenous contrast. FINDINGS: No evidence of acute or remote infarct. No intracranial hemorrhage. No mass effect. There is periventricular/deep white matter T2/FLAIR hyperintensity is nonspecific, but most commonly associated with chronic microvascular disease. The ventricles and sulci are normal in size for age. Clear basal cisterns. Flow voids in the major intracranial vessels are maintained. No abnormality of the orbits. Paranasal sinuses and mastoid air cells are clear. No abnormality of the visualized osseous structures and extracranial soft tissues. IMPRESSION: No acute infarct, intracranial hemorrhage, mass effect, or hydrocephalus.
[2024-11-29] MEDS ORDERED: ALBU108A5 INH (18:31)
[2024-11-29] MEDS ORDERED: RIV15T PO (18:31)
[2024-11-29] MEDS ORDERED: MINO1CAP PO (18:31)
[2024-11-29] MEDS: ERGOCALCIFEROL 50,000 UNIT(1.25MG) CAP PO SCH (18:58)
[2024-11-29] MEDS: cloNIDine HCL 0.1 MG TAB PO SCH (22:24)
[2024-11-30] VITALS (13 sets, daily range): BP systolic 87–124; BP diastolic 53–80; PULSE 59–68; RESP 16–18; TEMP 97.8–98.3; O2SAT 96–100
[2024-11-30 06:25] LABS: Basophils # (auto) 0 10 ^3/uL (0-0.2); Eosinophils # (auto) 0.1 10 ^3/uL (0-0.8); Lymphocytes # (auto) 0.9 10 ^3/uL (0.4-5.4); Neutrophils # (auto) 3.3 10 ^3/uL (1.6-8.6); Nucleated Red Blood Cells % 0.1 %; Red Cell Distribution Width 12.3 % (11.8-14.3)
[2024-11-30 06:27] LABS: Basophils % (auto) 0.7 % (0.0-2.0); Eosinophils % (auto) 1.9 % (0.0-7.0); Hematocrit 46.1 % (41.0-53.0); Hemoglobin 16.1 g/dL (13.5-17.5); Lymphocytes % (auto) 18.3 % (10.0-50.0); Mean Corpuscular Hemoglobin 35.5 pg (28.0-32.0); Mean Corpuscular Volume 101.5 fL (80.0-100.0); Monocytes # (auto) 0.6 10 ^3/uL (0-1.3); Monocytes % (auto) 12.3 % (0.0-12.0); Neutrophils % (auto) 66.8 % (37.0-80.0); Platelet Count (auto) 254 10^3/uL (140-450); Red Blood Cells 4.54 10^6/uL (4.5-5.90)
[2024-11-30 06:29] LABS: Albumin 3.8 g/dL (3.2-4.8); Alkaline Phosphatase 105 U/L (46-116); Anion Gap 8 (5-15); BUN/Creatinine Ratio 15.4 (10.0-20.0); Blood Urea Nitrogen 10 mg/dL (9-23); Calcium 9.5 mg/dL (8.7-10.4); Carbon Dioxide 27 mmol/L (20-31); Chloride 101 mmol/L (98-107); Glucose 90 mg/dL (74-106); Potassium 3.9 mmol/L (3.5-5.1); Sodium 136 mmol/L (136-145)
[2024-11-30 06:33] LABS: Alanine Aminotransferase 42 U/L (7-40); Aspartate Aminotransferase 51 U/L (13-40)
[2024-11-30 08:07] LABS: AFP Serum Tumor Marker 5.5 ng/mL (0.0-8.4); PSA Free 0.1 ng/mL; Prostate Specific Antigen 0.7 ng/mL (0.0-4.0)
[2024-11-30] MEDS: COLCHICINE 0.6 MG CAP PO SCH (09:56)
[2024-11-30] MEDS: ACETAMINOPHEN 325 MG TAB PO PRN (11:19)
[2024-11-30] MEDS: GADOTERATE MEG 10 MMOL/20ml INJ (0.5MMOL/ml) IV ONE (11:20)
--- NOTE | 2024-11-30 15:46 | DVHPNRES ---
Progress Note Date Seen: Nov 30, 2024 Resident Creating Document: JORGE MARCANO RESIDENT Has the PT tested + for MRSA If YES, has PT been informed?: No Medical Necessity Reason Pt with a Central, PICC or Fol: No Subjective Review of Systems This is a 59-year-old male with past medical history of hypertension and previous history of DVT who presented to the ED for further evaluation of bilateral leg pain. The patient reported that he was recently diagnosed with left lower extremity DVT on 11/20/2024 and was discharged initially on Eliquis from [facility]. Afterwards he went to another hospital where he had similar diagnosis one week later and he was switched to Xarelto 50 mg b.i.d.. Patient reported that he has been feeling right lower extremity swelling and tenderness since the past three days. Patient denied fever/chills, chest pain, shortness of breath or any other associated symptoms at this time. Initial labs showed a CBC in normal range, BNP was unremarkable as well. AST, ALT total bilirubin and alkaline phosphatase were all elevated. Right and left foot x-ray were both unremarkable. Bilateral lower venous Doppler was performed showing left leg DVT in the left distal superficial femoral vein, popliteal vein and posterior tibialis pain. A CT angio of the chest was performed showing bilateral lower subsegmental pulmonary embolism. Patient was started on enoxaparin therapeutic dose and was admitted for further assessment and management of DVT and PE. Patient seen and examined at bedside. Upon my examination, the patient was alert and oriented in person, place and time. Family, daughter stated that when she was in the room she noticed that the patient was having visual hallucinations and saying things that he was outside of the hospital performing other activities. Patient might be cursing with intermittent delirium. We will keep monitoring, since the etiology of the Librium is not well defined. We explained to the daughter that this could be due to alcohol withdrawal, possible UTI or infection or just been in the hospital in a room for a couple of days. Regarding his pulmonary embolism and DVT we will start the patient on warfarin. We will do warfarin bridge and keep the patient on enoxaparin at this time. MRI of the abdomen is still pending official reports. We will also keep the patient on colchicine 0.6 mg daily due to possible gout flare which is getting better compared to admission. Patient has no complaints at this time. ROS Constitutional: Denies weight loss, fever and chills. HEENT: Denies changes in vision and hearing. Respiratory: Denies shortness of breath and cough Cardiovascular: Denies chest discomfort or palpitations GI: Denies abdominal pain, nausea, vomiting and diarrhea. : Denies dysuria and urinary frequency. Musculoskeletal: Denies myalgias and joint pain Skin: Denies rash and pruritus. Neurological: Denies dizziness, headache, vision or hearing problems Objective vital signs Vital Sign Date Time Temp Pulse Resp B/P (MAP) Pulse Ox O2 Delivery O2 Flow Rate FiO2 11/30/24 13:00 97.9 62 18 102/65 (77) 97 97.9 11/30/24 09:55 Room Air* 0 21 Total Intake and Output 11/29/24 11/29/24 11/30/24 14:59 22:59 06:59 Intake Total 50 ml 200 ml 400 ml Output Total 450 ml Balance 50 ml -250 ml 400 ml medications Current Medications Medications Dose Ordered Sig/Tere Route Start Time Stop Time Status Last Admin Dose Admin Enoxaparin Sodium 80 mg Q12HR SC 11/28/24 10:00 11/30/24 09:56 80 MG Lisinopril 10 mg DAILY PO 11/28/24 10:00 11/29/24 10:38 10 MG Albuterol 2.5 mg Q6HPRN PRN NEB 11/27/24 22:15 Acetaminophen/ Hydrocodone Bitart 1 tab Q4HP PRN PO 11/27/24 22:15 11/28/24 06:07 1 TAB Ondansetron HCl 4 mg Q4HP PRN IV 11/27/24 22:15 Acetaminophen 650 mg Q6HP PRN PO 11/27/24 22:15 11/30/24 11:19 650 MG Nitroglycerin 0.4 mg Q5MINP PRN SL 11/27/24 22:15 Morphine Sulfate 2 mg Q30M PRN IV 11/27/24 22:15 Ceftriaxone Sodium 50 ml @ 100 mls/hr DAILY@09 IV 11/28/24 01:30 11/30/24 09:55 100 MLS/HR Colchicine 0.6 mg DAILY PO 11/30/24 10:00 11/30/24 09:56 0.6 MG Ergocalciferol 50,000 unit Q7D PO 11/29/24 14:15 11/29/24 18:58 50,000 UNIT Warfarin Sodium RX PROTOCOL PER PHARMACY PO 11/30/24 13:30 UNV Examination Physical Examination General: Patient alert and oriented but ocassional has episodes of delirium with visual hallucinations. Patient follows commands. HEENT: Normocephalic, atraumatic, moist mucous membranes Respiratory/pulmonary: Clear lungs bilaterally, no associated crackles or wheezes. Cardiovascular: Normal heart sounds S1 and S2 with no associated murmurs Abdomen: Abdomen nondistended, there is no pain to palpation in any of the abdominal quadrants, no palpable masses. Extremities: There is right big toe inflammation likely due to gout attack. There is no peripheral edema present at the lower extremities. Peripheral Pulses: 3+ Radial (R). 3+ Radial (L). 3+ Dorsalis pedis (R). 3+ Dorsalis pedis(L) Skin: No rashes or pruritus, there is no sacral edema present at this time. Neurological: Intact cranial nerves with no focal neurologic deficits laboratory and microbiology Laboratory Tests 11/30/24 05:27 Test 11/30/24 05:27 Range/Units Serum Glucose 90 74-106 mg/dL Microbiology Date/Time Source Procedure Growth Status 11/28/24 01:45 Blood Blood Culture - Preliminary NO GROWTH AFTER 48 HOURS OF INCUBATION. Resulted Problem List/Assessment/Plan Problem List/Assessment/Plan Assessment/Plan Acute hypoxic respiratory distress likely due to pulmonary embolism Acute DVT on left lower extremity -bilateral lower extremity venous Doppler showing left leg DVT in the left distal superficial femoral vein, popliteal vein and posterior tibialis vein -CT angio of the chest is showing bilateral lower lobe subsegmental pulmonary embolism -patient is currently on enoxaparin therapeutic dose 80 mg q.12 -currently on room air saturating 98% -monitor saturation closely -monitor blood pressure and vitals signs closely -Ordered MRI of the abdomen w and w/o contrast to R/O malignancy -Start warfarin per protocol -Do bridge to warfarin, keep patient on lovenox at this time as well and monitor INR Acute metabolic/toxic encephalopathy, likely due to sepsis -Patient is having delirium, disoriented -Ammonium was on normal range Acute transaminitis and hyperbilirrubinemia -Liver U/S was unremarkable -trend liver enzymes Acute delirium, unknown source likely due to UTI -patient is alert and oriented but occasionally gets visual hallucinations and odd thoughts. -Monitor symptoms UTI -UA suggestive of UTI -IV ceftriaxone Acute gout flare -colchicine 1.2 mg loading dose -continue colchicine 0.6 mg daily Primary hypertension -continue lisinopril 10 mg daily -monitor blood pressure closely Possible hypothyroidism -TSH:9.96 -Ordered Free T4 Goals of care discussed with the daughter and family at bedside for > 25min Plan discussed with Dr. Dominguez Plan discussed with: Patient, Daughter, Other My Orders My Orders Orders - JORGE MARCANO Procedure Category Date Status Time Warfarin Sodium PHA 11/30/24 Logged (Coumadin) 17:00 Dietary Cons For NOURISH 11/30/24 Transmitted Malnutrition 13:24 Warfarin Per Rx PHA 11/30/24 Logged Protocol (Coumadin 13:30 Dietary Evaluation Review Comments: Continue current plan of care Expected Outcomes/Goals: To meet >75% estimated needs Fu 3-5 days Date of Service: Nov 30, 2024 Billing Provider: GRETA DOMINGUEZ MD Common Visit Codes: [id number] INP/OBS CARE(HIGH) JORGE MARCANO RESIDENT Nov 30, 2024 15:46 GRETA DOMINGUEZ MD Nov 30, 2024 15:53
--- NOTE | 2024-11-30 18:06 | DVH ---
Patient Name: KD WATSON Patient : 1965 Patient Gender: Male Patient Class: Inpatient Patient Location: [facility] [place] Location: [facility] [place]. Doc: Gustavo Dye Ord. Doc:JORGE SNEED RESIDENT DOS: 11/29/2024 Signed Date: 11/29/2024 Status: Draft Procedure: MRI MRI ABD PLEVIS W/WO CONT EXAM: MRI ABD PLEVIS W/WO CONT COMPARISON: No prior imaging of the abdomen pelvis INDICATION: CONTRAST: Type of contrast: Contrast injected: Contrast wasted: 0 TECHNIQUE: MRI abdomen was performed with and without intravenous contrast. FINDINGS: Lung bases and heart appear to be grossly unremarkable. Spleen is enlarged at 12.9 cm. Common bile duct measures 4.5 mm intrahepatic bile ducts are not dilated. Gallbladder is generally unremarkable Pancreatic duct over the head of the pancreas measures 3.75 mm which is slightly enlarged there is bilateral perinephric stranding which is nonspecific. Left adrenal is unremarkable. Right adrenals unremarkable. There is no evidence for restricted diffusion bladder is unremarkable. Prostate appears to be small gastrointestinal tract is unremarkable except for multiple diverticuli in the sigmoid in the descending colon signals within the bones are normal rectosigmoid appears to be grossly unremarkable there are no fluid collections in the abdomen or pelvis there are no focal lesions in the kidneys liver . There are no fluid collections in the cul-de-sac pelvis and muscles of the pelvic girdle appear to be unremarkable MTDD
[2024-11-30 18:25] LABS: INR 1.11 (0.9-1.15); Prothrombin Time 11.6 sec (9.3-11.8)
--- NOTE | 2024-11-30 19:18 | DVHINCON2 ---
Date of service: Nov 30, [address] Queen History of Present Illness A 59-year-old man with PMHx of DVT and hypertension who initially presented to the ED on 11/28/24 for evaluation of bilateral leg pain. Patient reports that on 11/20/2024 was diagnosed with left lower extremity DVT. Patient was initially placed on Eliquis and switched to Xarelto. Patient states that over the past three days his right lower extremity became tender with mild swelling. Denies fever or chills. CT angiogram performed in the emergency department revealed bilateral pulmonary embolism. No chest pain or shortness for breath. No other acute complaints Patient was admitted for further care and pulmonary consultation is requested for evaluation and management of acute hypoxic respiratory failure Review of Systems: 14-point review of systems negative unless otherwise noted above. Past Medical History: DVT and hypertension Past Surgical History: None Medications: Reviewed. Allergies: No known drug allergies. Family History: Cancer and heart disease. Social History: Nonsmoker. Occasional alcohol use. No illicit drug use. Family History: FH: cancer G8 MOTHER G8 FATHER FH: heart disease G8 MOTHER Allergies: Coded Allergies: NO KNOWN ALLERGIES (Unverified , 11/27/24) Home Meds Reported Medications Albuterol Sulfate (Albuterol Sulfate Hfa) 108 Mcg/Act Aer, INH 11/29/24 Minocycline HCl (Minocycline Hydrochloride) 100 Mg Cap, 1 CAP PO BID 11/29/24 Rivaroxaban (Xarelto Tablet) 15 Mg Tb, 1 TAB PO BID 11/29/24 Current Medications Current Medications Medications (Trade) Dose Ordered Sig/Tere Route PRN Reason Start Time Stop Time Status Last Admin Colchicine (Colcrys) 0.6 mg DAILY PO 11/30/24 10:00 11/30/24 09:56 Clonidine HCl (Catapres Tablet) 0.2 mg BID PO 11/29/24 22:00 11/30/24 09:48 DC 11/29/24 22:24 Warfarin Sodium (Coumadin Per Rx Protocol) RX PROTOCOL PER PHARMACY PO 11/30/24 13:30 Vital Signs Vital Signs Date Time Temp Pulse Resp B/P (MAP) Pulse Ox O2 Delivery O2 Flow Rate FiO2 11/30/24 17:00 98.3 61 17 117/71 (86) 100 98.3 11/30/24 09:55 Room Air* 0 21 Physical Exam Gen.: Patient lying in bed in no apparent distress. Breathing on room air. Head: Normocephalic, atraumatic. Eyes: EOMI/PERRLA. Ears: Normal hearing. Normal anatomy. Neck/trachea: Trachea midline, supple. Nose: Normal external anatomy. Mouth: Moist mucous membranes. Chest: Decreased air entry bilaterally. No wheezing or rhonchi. Cardiovascular: Positive S1, positive S2. Regular rate and rhythm. Abdomen: Positive bowel sounds in all 4 quadrants. Soft, non-tender, non- distended. : Deferred. Rectal: Deferred. Skin: Warm, dry. Intact. Extremities: 2+ radial pulses bilaterally. No lower extremity edema. Neuro: Awake, alert, oriented x3. No gross motor or sensory deficits. Cranial nerves II through XII intact. Gait not assessed. Labs/Diagnostic Data Labs Test 11/30/24 17:28 11/30/24 05:27 11/29/24 14:22 11/29/24 05:15 Range/Units Prothrombin Time 11.6 9.3-11.8 sec Prothrombin Time INR 1.11 0.9-1.15 White Blood Count 5.0 4.4-10.8 10^3/uL Red Blood Count 4.54 4.5-5.90 10^6/uL Hemoglobin 16.1 13.5-17.5 g/dL Hematocrit 46.1 41.0-53.0 % Mean Corpuscular Volume 101.5 H 80.0-100.0 fL Mean Corpuscular Hemoglobin 35.5 H 28.0-32.0 pg Mean Corpuscular Hemoglobin Concent 35.0 32.0-36.0 g/dL Red Cell Distribution Width 12.3 11.8-14.3 % Platelet Count 254 140-450 10^3/uL Mean Platelet Volume 7.8 6.9-10.8 fL Neutrophils (%) (Auto) 66.8 37.0-80.0 % Lymphocytes (%) (Auto) 18.3 10.0-50.0 % Monocytes (%) (Auto) 12.3 H 0.0-12.0 % Eosinophils (%) (Auto) 1.9 0.0-7.0 % Basophils (%) (Auto) 0.7 0.0-2.0 % Neutrophils # (Auto) 3.3 1.6-8.6 10 ^3/uL Lymphocytes # (Auto) 0.9 0.4-5.4 10 ^3/uL Monocytes # (Auto) 0.6 0-1.3 10 ^3/uL Eosinophils # (Auto) 0.1 0-0.8 10 ^3/uL Basophils # (Auto) 0 0-0.2 10 ^3/uL Nucleated Red Blood Cells 0.1 % Sodium Level 136 136-145 mmol/L Potassium Level 3.9 3.5-5.1 mmol/L Chloride Level 101 98-107 mmol/L Carbon Dioxide Level 27 20-31 mmol/L Anion Gap 8 5-15 Blood Urea Nitrogen 10 9-23 mg/dL Creatinine 0.65 L 0.700-1.30 mg/dL Glomerular Filtration Rate Calc 108 >90 mL/min BUN/Creatinine Ratio 15.4 10.0-20.0 Serum Glucose 90 74-106 mg/dL Calcium Level 9.5 8.7-10.4 mg/dL Total Bilirubin 1.0 0.2-1.0 mg/dL Aspartate Amino Transferase (AST) 51 H 13-40 U/L Alanine Aminotransferase (ALT) 42 H 7-40 U/L Alkaline Phosphatase 105 46-116 U/L Total Protein 6.0 5.7-8.2 g/dL Albumin 3.8 3.2-4.8 g/dL Plasma/Serum Blood Alcohol 3.7 <10 mg/dL Activated Partial Thromboplast Time 32.5 24.5-34.5 SEC Hemoglobin A1c 4.4 <5.7 % A1C Lactic Acid Level 1.1 0.4-2.0 mmol/L Phosphorus Level 3.6 2.4-5.1 mg/dL Magnesium Level 1.9 1.6-2.6 mg/dL Ammonia < 10 L 11-32 umol/L Triglycerides Level 145 < 150 mg/dL Cholesterol Level 161 < 200 mg/dL LDL Cholesterol 107 H < 100 mg/dL HDL Cholesterol 30 L 40-59 mg/dL Vitamin B12 Level 655 211-911 pg/mL Vitamin D 25-Hydroxy 29.8 L 30.0-100 ng/mL Thyroid Stimulating Hormone (TSH) 9.96 H 0.55-4.78 uIU/mL Free Thyroxine (T4) Calculated 0.91 0.89-1.76 ng/dL Test 11/29/24 03:50 11/28/24 10:57 11/28/24 05:04 11/27/24 22:37 Range/Units Blood Gas Specimen Type Arterial Blood Gas Sample Site Right radial Blood Gas Patient Temperature 37.0 Arterial Blood Date Drawn [id number] Arterial Blood pH 7.463 H 7.350-7.450 Arterial Blood Partial Pressure CO2 31.6 L 35.0-48.0 mmHg Arterial Blood Partial Pressure O2 67.2 L 83.0-108.0 mmHg Arterial Blood HCO3 22.1 21.0-28.0 mmol/L Arterial Blood Oxygen Saturation 93.2 L 94.0-98.0 % Arterial Blood Base Excess -0.5 -2.0-3.0 mmol/L Arterial Blood Oxyhemoglobin 91.7 L 94.0-98.0 % Arterial Blood Carboxyhemoglobin 1.0 0.5-1.5 % Arterial Blood Methemoglobin 0.6 0.0-1.5 % Ryder Test Modified Blood Gas Total Hemoglobin 17.70 H 13.5-17.5 g/dL Blood Gas Modality Room air FiO2 % 21.0 Tumor Marker Alpha Fetoprotein 5.5 0.0-8.4 ng/mL CA 19-9 Antigen 5 u/ml Free Prostate Specific Antigen 0.10 N/A ng/mL Percent Free Prostate Specific Ag 14.3 . % Prostate Specific Antigen Total 0.7 0.0-4.0 ng/mL Carcinoembryonic Antigen < 0.50 <=5.0 ng/mL Hepatitis A Antibody Total Positive H Negative Hepatitis B Surface Antigen Negative Negative Hepatitis B Surface Antibody Negative Negative Hepatitis B Core Total Antibody Negative Negative Hepatitis C Antibody Negative Negative Hepatitis A IgM Antibody Negative Hepatitis B Core IgM Antibody Negative Negative Test 11/27/24 20:59 11/27/24 20:20 11/27/24 18:08 11/27/24 17:33 Range/Units Troponin I High Sensitivity < 3 L </=54 ng/L Urine Color Light-orange Yellow Urine Clarity Clear Clear Urine pH 6.5 5.0-9.0 Urine Specific [place] 1.024 1.001-1.035 Urine Protein Negative Negative Urine Ketones 2+ H Negative Urine Blood Trace H Negative /uL Urine Nitrite Negative Negative Urine Bilirubin Negative Negative Urine Urobilinogen 2 H Negative mg/dL Urine Leukocyte Esterase Negative Negative /uL Urine RBC 17 0 - 3 /hpf Urine Microscopic WBC 3 0-3 /HPF Urine Squamous Epithelial Cells Few <5 /hpf Urine Bacteria Few H None Seen /hpf Urine Mucus Few None Seen Urine Glucose Normal Normal mg/dL Erythrocyte Sedimentation Rate 11 0-20 mm/hr Uric Acid 6.1 3.7-9.2 mg/dL Creatine Kinase 28 L 46-171 U/L C-Reactive Protein High Sensitivity 4.42 H <1.0 mg/dL Blood Gas Critical Value Read Back Yes Blood Gas Notified Whom sawyer Lee md Blood Gas Notified Time [id number] Blood Gas Notified By gurmeet Bajwa rrt Microbiology Date/Time Source Procedure Growth Status 11/28/24 01:45 Blood Blood Culture - Preliminary NO GROWTH AFTER 48 HOURS OF INCUBATION. Resulted Assessment Impression: Acute hypoxic respiratory failure Dependence on supplemental oxygen Pulmonary emboli, bilateral lower lobe subsegmental Deep vein thrombosis in the left lower extremity Acute metabolic/toxic encephalopathy Acute transaminitis Acute delirium Urinary tract infection Plan: Supplemental oxygen Titrate to keep O2 sats above 92%. Taper O2 as tolerated. Head of bed elevation Aspiration precautions Continue bronchodilators. Continue antibiotics Follow up cultures Incentive spirometry Continue diuresis Diurese to euvolemia Monitor renal function. Monitor electrolytes. Supplement as necessary. Monitor ins and outs. Monitor INR goal 2-3 On warfarin with Lovenox bridge DVT prophylaxis. Therapeutic Lovenox bridge, on warfarin Prognosis: Poor given patient's multiple co-morbidities. Rest of plan per hospitalist and other consultants. Thank you Dr. Queen for allowing me to participate in this patient's care. Further recommendations will depend on the patient's clinical course. Please do not hesitate to contact me if you have any questions or concerns. This medical document was created using an electronic medical record system with [employer] dictation system. Although these documentations are being carefully reviewed, there may still be some phonetic and typographical changes. The errors are purely typographical, due to imperfection on the software program, and do not reflect any compromise in the patient's medical care. Plan discussed with: Other (CASSIE Gleason MD) JEROME HAWKINS MD Nov 30, 2024 19:18
[2024-11-30] MEDS: WARFARIN SODIUM 5 MG TAB PO ONE (19:59)
[2024-12-01] VITALS (11 sets, daily range): BP systolic 111–123; BP diastolic 70–86; PULSE 58–76; RESP 16–18; TEMP 97.6–98.3; O2SAT 92–99
[2024-12-01 02:26] LABS: Amphetamine Screen, Urine Neg (NEGATIVE); Barbiturate Scree,Urine Neg (NEGATIVE); Benzodiazephine Screen, Urine Neg (NEGATIVE); Cannabinoid Screen, Urine Neg (NEGATIVE); Cocaine Screen, Urine Neg (NEGATIVE); Opiate Scree,Urine Neg (NEGATIVE); Phencyclidine Screen, Urine Neg (NEGATIVE)
[2024-12-01 06:31] LABS: Basophils # (auto) 0 10 ^3/uL (0-0.2); Eosinophils # (auto) 0.1 10 ^3/uL (0-0.8); Hemoglobin 17.3 g/dL (13.5-17.5); Lymphocytes # (auto) 0.9 10 ^3/uL (0.4-5.4); Mean Corpuscular Hemoglobin 34.6 pg (28.0-32.0); Monocytes # (auto) 0.6 10 ^3/uL (0-1.3); Neutrophils # (auto) 2.5 10 ^3/uL (1.6-8.6); Red Cell Distribution Width 12.1 % (11.8-14.3)
[2024-12-01 06:36] LABS: Basophils % (auto) 0.9 % (0.0-2.0); Eosinophils % (auto) 2.4 % (0.0-7.0); Hematocrit 50.6 % (41.0-53.0); Lymphocytes % (auto) 21.8 % (10.0-50.0); Mean Corpuscular Hgb Conc. 34.1 g/dL (32.0-36.0); Mean Corpuscular Volume 101.5 fL (80.0-100.0); Monocytes % (auto) 14.2 % (0.0-12.0); Neutrophils % (auto) 60.7 % (37.0-80.0); Nucleated Red Blood Cells % 0.2 %; Platelet Count (auto) 282 10^3/uL (140-450); Red Blood Cells 4.98 10^6/uL (4.5-5.90); White Blood Cell 4.2 10^3/uL (4.4-10.8)
[2024-12-01 06:45] LABS: INR 1.03 (0.9-1.15); Partial Thromboplastin Time 30.7 SEC (24.5-34.5); Prothrombin Time 10.9 sec (9.3-11.8)
[2024-12-01 06:58] LABS: Albumin 4.2 g/dL (3.2-4.8); Alkaline Phosphatase 115 U/L (46-116); Anion Gap 9 (5-15); BUN/Creatinine Ratio 9.7 (10.0-20.0); Calcium 10.1 mg/dL (8.7-10.4); Carbon Dioxide 29 mmol/L (20-31); Chloride 100 mmol/L (98-107); Glucose 78 mg/dL (74-106); Sodium 138 mmol/L (136-145); Total Protein 6.5 g/dL (5.7-8.2)
[2024-12-01 06:59] LABS: Bilirubin, Total 0.9 mg/dL (0.2-1.0)
[2024-12-01 07:00] LABS: Alanine Aminotransferase 58 U/L (7-40); Aspartate Aminotransferase 70 U/L (13-40); Blood Urea Nitrogen 7 mg/dL (9-23)
[2024-12-01] MEDS ORDERED: WARFARIN SODIUM 5 MG TAB PO SCH (09:00)
--- NOTE | 2024-12-01 12:08 | DVHPNRES ---
Progress Note Date Seen: Dec 01, 2024 Resident Creating Document: JORGE MARCANO RESIDENT Has the PT tested + for MRSA If YES, has PT been informed?: No Medical Necessity Reason Pt with a Central, PICC or Fol: No Subjective Review of Systems This is a 59-year-old male with past medical history of hypertension and previous history of DVT who presented to the ED for further evaluation of bilateral leg pain. The patient reported that he was recently diagnosed with left lower extremity DVT on 11/20/2024 and was discharged initially on Eliquis from [facility]. Afterwards he went to another hospital where he had similar diagnosis one week later and he was switched to Xarelto 50 mg b.i.d.. Patient reported that he has been feeling right lower extremity swelling and tenderness since the past three days. Patient denied fever/chills, chest pain, shortness of breath or any other associated symptoms at this time. Initial labs showed a CBC in normal range, BNP was unremarkable as well. AST, ALT total bilirubin and alkaline phosphatase were all elevated. Right and left foot x-ray were both unremarkable. Bilateral lower venous Doppler was performed showing left leg DVT in the left distal superficial femoral vein, popliteal vein and posterior tibialis pain. A CT angio of the chest was performed showing bilateral lower subsegmental pulmonary embolism. Patient was started on enoxaparin therapeutic dose and was admitted for further assessment and management of DVT and PE. Patient seen and examined at bedside. In the recovery coordinator, the patient was alert and oriented in person, place and time and was not showing any signs of the Librium. Per nurse, sitter and family member at bedside, the patient was having visual hallucinations and stating that "he was driving a car without steering". Apparently the patient has been going through showed episodes of the Librium where he has a hallucinations and weird thoughts and then comes back to normal state. We gave haloperidol one tab 1mg once, since the patient was having visual hallucinations and agitation. We will do a tele psych consult to get a further assessment of possible underlying etiology. At this time, WBC is normal range, no signs of infection. We will continue warfarin 5 mg daily as well with a enoxaparin therapeutic dose to be able to bridge the patient anticoagulation to just warfarin. We will keep monitoring INR until it is on therapeutic range. Otherwise patient is stable hemodynamically and has no additional complaints. ROS Constitutional: Denies weight loss, fever and chills. HEENT: Denies changes in vision and hearing. Respiratory: Denies shortness of breath and cough Cardiovascular: Denies chest discomfort or palpitations GI: Denies abdominal pain, nausea, vomiting and diarrhea. : Denies dysuria and urinary frequency. Musculoskeletal: Denies myalgias and joint pain Skin: Denies rash and pruritus. Neurological: Denies dizziness, headache, vision or hearing problems Objective vital signs Vital Sign Date Time Temp Pulse Resp B/P (MAP) Pulse Ox O2 Delivery O2 Flow Rate FiO2 12/01/24 10:01 97 Room Air* 0 21 12/01/24 09:33 111/80 12/01/24 08:30 97.6 61 17 97.6 Total Intake and Output 11/30/24 11/30/24 12/01/24 15:00 23:00 07:00 Intake Total 50 ml 400 ml 2300 ml Output Total 1250 ml 2310 ml Balance 50 ml -850 ml -10 ml medications Current Medications Medications Dose Ordered Sig/Tere Route Start Time Stop Time Status Last Admin Dose Admin Enoxaparin Sodium 80 mg Q12HR SC 11/28/24 10:00 12/01/24 09:32 80 MG Lisinopril 10 mg DAILY PO 11/28/24 10:00 12/01/24 09:33 10 MG Albuterol 2.5 mg Q6HPRN PRN NEB 11/27/24 22:15 Acetaminophen/ Hydrocodone Bitart 1 tab Q4HP PRN PO 11/27/24 22:15 11/28/24 06:07 1 TAB Ondansetron HCl 4 mg Q4HP PRN IV 11/27/24 22:15 Acetaminophen 650 mg Q6HP PRN PO 11/27/24 22:15 11/30/24 20:13 650 MG Nitroglycerin 0.4 mg Q5MINP PRN SL 11/27/24 22:15 Morphine Sulfate 2 mg Q30M PRN IV 11/27/24 22:15 Ceftriaxone Sodium 50 ml @ 100 mls/hr DAILY@09 IV 11/28/24 01:30 12/01/24 09:32 100 MLS/HR Colchicine 0.6 mg DAILY PO 11/30/24 10:00 12/01/24 09:33 0.6 MG Ergocalciferol 50,000 unit Q7D PO 11/29/24 14:15 11/29/24 18:58 50,000 UNIT Warfarin Sodium 5 mg DAILY@17 PO 12/01/24 09:00 UNV Examination Physical Examination General: Patient alert and oriented but ocassional has episodes of delirium with visual hallucinations. Patient follows commands. HEENT: Normocephalic, atraumatic, moist mucous membranes Respiratory/pulmonary: Clear lungs bilaterally, no associated crackles or wheezes. Cardiovascular: Normal heart sounds S1 and S2 with no associated murmurs Abdomen: Abdomen nondistended, there is no pain to palpation in any of the abdominal quadrants, no palpable masses. Extremities: There is right big toe inflammation likely due to gout attack. There is no peripheral edema present at the lower extremities. Peripheral Pulses: 3+ Radial (R). 3+ Radial (L). 3+ Dorsalis pedis (R). 3+ Dorsalis pedis(L) Skin: No rashes or pruritus, there is no sacral edema present at this time. Neurological: Intact cranial nerves with no focal neurologic deficits laboratory and microbiology Laboratory Tests 12/01/24 04:55 Test 12/01/24 04:55 Range/Units Serum Glucose 78 74-106 mg/dL Microbiology Date/Time Source Procedure Growth Status 11/28/24 01:45 Blood Blood Culture - Preliminary NO GROWTH AFTER 72 HOURS OF INCUBATION. Resulted Problem List/Assessment/Plan Problem List/Assessment/Plan Assessment/Plan Acute hypoxic respiratory distress likely due to pulmonary embolism Acute DVT on left lower extremity -bilateral lower extremity venous Doppler showing left leg DVT in the left distal superficial femoral vein, popliteal vein and posterior tibialis vein -CT angio of the chest is showing bilateral lower lobe subsegmental pulmonary embolism -patient is currently on enoxaparin therapeutic dose 80 mg q.12 -currently on room air saturating 98% -monitor saturation closely -monitor blood pressure and vitals signs closely -Ordered MRI of the abdomen w and w/o contrast to R/O malignancy -Continue warfarin 5 mg daily -Do bridge to warfarin, keep patient on lovenox at this time as well and monitor INR Acute metabolic/toxic encephalopathy, likely due to sepsis -Patient is having delirium, disoriented -Ammonium was on normal range Acute transaminitis and hyperbilirrubinemia -Liver U/S was unremarkable -trend liver enzymes Acute delirium, unknown source likely due to UTI? -patient is alert and oriented but occasionally gets visual hallucinations and odd thoughts. -Monitor symptoms -Gave one dose of haloperidol 1mg once PO -Tele psych consulted UTI -UA suggestive of UTI -IV ceftriaxone Acute gout flare -colchicine 1.2 mg loading dose -continue colchicine 0.6 mg daily Primary hypertension -continue lisinopril 10 mg daily -monitor blood pressure closely Possible hypothyroidism -TSH:9.96 -Ordered Free T4 Goals of care discussed with the daughter and family at bedside for > 25min Plan discussed with Dr. Dominguez critical care time 40 mins Plan discussed with: Patient, Daughter, Other My Orders My Orders Orders - JORGE MARCANO Procedure Category Date Status Time Dietary Cons For NOURISH 11/30/24 Transmitted Malnutrition 13:24 Communication Order ORDERS 11/30/24 Transmitted 16:14 Coumadin Per Pharmacy [facility] 11/30/24 In Process Protcol 18:30 Warfarin Sodium PHA 12/01/24 Pending (Coumadin) 09:00 Pt Request For Service PT 12/01/24 Logged 10:22 *Tele Psych Consult CONS 12/01/24 Transmitted 11:54 Haloperidol Tablet PHA 12/01/24 Transmitted (Haldol Tablet) 12:00 Dietary Evaluation Review Comments: Continue current plan of care Expected Outcomes/Goals: To meet >75% estimated needs Fu 3-5 days Date of Service: Dec 01, 2024 Billing Provider: GRETA DOMINGUEZ MD Common Visit Codes: [id number] CARE 30-74 MIN JORGE MARCANO Dec 01, 2024 12:08 GRETA DOMINGUEZ MD Dec 01, 2024 13:47
[2024-12-01] MEDS: HALOPERIDOL 1 MG TAB PO ONE (13:49)
[2024-12-01] MEDS: WARFARIN SODIUM 5 MG TAB PO ONE (17:00)
--- NOTE | 2024-12-01 21:57 | DVHINCON2 ---
Date of Service if different f: Dec 01, 2024 Time of Service: 14:00 Consultation (TIMBL[place]) Labs Laboratory Tests Test 11/27/24 17:33 11/27/24 18:08 11/27/24 20:20 11/27/24 20:59 Blood Gas Critical Value Read Back Yes Blood Gas Notified Whom sawyer Lee md Blood Gas Notified Time [id number] Blood Gas Notified By gurmeet Bajwa rrt Erythrocyte Sedimentation Rate 11 mm/hr (0-20) Uric Acid 6.1 mg/dL (3.7-9.2) Creatine Kinase 28 U/L (46-171) C-Reactive Protein High Sensitivity 4.42 mg/dL (<1.0) Urine Color Light-orange (Yellow) Urine Clarity Clear (Clear) Urine pH 6.5 (5.0-9.0) Urine Specific [place] 1.024 (1.001-1.035) Urine Protein Negative (Negative) Urine Ketones 2+ (Negative) Urine Blood Trace /uL (Negative) Urine Nitrite Negative (Negative) Urine Bilirubin Negative (Negative) Urine Urobilinogen 2 mg/dL (Negative) Urine Leukocyte Esterase Negative /uL (Negative) Urine RBC 17 /hpf (0 - 3) Urine Microscopic WBC 3 /HPF (0-3) Urine Squamous Epithelial Cells Few /hpf (<5) Urine Bacteria Few /hpf (None Seen) Urine Mucus Few (None Seen) Urine Glucose Normal mg/dL (Normal) Troponin I High Sensitivity < 3 ng/L (</=54) Test 11/27/24 22:37 11/28/24 05:04 11/28/24 10:57 11/29/24 03:50 Hepatitis A IgM Antibody Negative Hepatitis B Core IgM Antibody Negative (Negative) Carcinoembryonic Antigen < 0.50 ng/mL (<=5.0) Hepatitis A Antibody Total Positive (Negative) Hepatitis B Surface Antigen Negative (Negative) Hepatitis B Surface Antibody Negative (Negative) Hepatitis B Core Total Antibody Negative (Negative) Hepatitis C Antibody Negative (Negative) Tumor Marker Alpha Fetoprotein 5.5 ng/mL (0.0-8.4) CA 19-9 Antigen 5 u/ml Free Prostate Specific Antigen 0.10 ng/mL (N/A) Percent Free Prostate Specific Ag 14.3 % (.) Prostate Specific Antigen Total 0.7 ng/mL (0.0-4.0) Blood Gas Specimen Type Arterial Blood Gas Sample Site Right radial Blood Gas Patient Temperature 37.0 Arterial Blood Date Drawn [id number] Arterial Blood pH 7.463 (7.350-7.450) Arterial Blood Partial Pressure CO2 31.6 mmHg (35.0-48.0) Arterial Blood Partial Pressure O2 67.2 mmHg (83.0-108.0) Arterial Blood HCO3 22.1 mmol/L (21.0-28.0) Arterial Blood Oxygen Saturation 93.2 % (94.0-98.0) Arterial Blood Base Excess -0.5 mmol/L (-2.0-3.0) Arterial Blood Oxyhemoglobin 91.7 % (94.0-98.0) Arterial Blood Carboxyhemoglobin 1.0 % (0.5-1.5) Arterial Blood Methemoglobin 0.6 % (0.0-1.5) Ryder Test Modified Blood Gas Total Hemoglobin 17.70 g/dL (13.5-17.5) Blood Gas Modality Room air FiO2 % 21.0 Test 11/29/24 05:15 11/29/24 14:22 12/01/24 01:30 12/01/24 04:55 Hemoglobin A1c 4.4 % A1C (<5.7) Lactic Acid Level 1.1 mmol/L (0.4-2.0) Phosphorus Level 3.6 mg/dL (2.4-5.1) Magnesium Level 1.9 mg/dL (1.6-2.6) Triglycerides Level 145 mg/dL (< 150) Cholesterol Level 161 mg/dL (< 200) LDL Cholesterol 107 mg/dL (< 100) HDL Cholesterol 30 mg/dL (40-59) Vitamin B12 Level 655 pg/mL (211-911) Vitamin D 25-Hydroxy 29.8 ng/mL (30.0-100) Thyroid Stimulating Hormone (TSH) 9.96 uIU/mL (0.55-4.78) Free Thyroxine (T4) Calculated 0.91 ng/dL (0.89-1.76) Plasma/Serum Blood Alcohol 3.7 mg/dL (<10) Urine Opiates Screen Neg (NEGATIVE) Urine Fentanyl Screen Neg (NEGATIVE) Urine Barbiturates Screen Neg (NEGATIVE) Urine Phencyclidine Screen Neg (NEGATIVE) Urine Amphetamines Screen Neg (NEGATIVE) Urine Benzodiazepines Screen Neg (NEGATIVE) Urine Cocaine Screen Neg (NEGATIVE) Urine Cannabinoids Screen Neg (NEGATIVE) White Blood Count 4.2 10^3/uL (4.4-10.8) Red Blood Count 4.98 10^6/uL (4.5-5.90) Hemoglobin 17.3 g/dL (13.5-17.5) Hematocrit 50.6 % (41.0-53.0) Mean Corpuscular Volume 101.5 fL (80.0-100.0) Mean Corpuscular Hemoglobin 34.6 pg (28.0-32.0) Mean Corpuscular Hemoglobin Concent 34.1 g/dL (32.0-36.0) Red Cell Distribution Width 12.1 % (11.8-14.3) Platelet Count 282 10^3/uL (140-450) Mean Platelet Volume 7.9 fL (6.9-10.8) Neutrophils (%) (Auto) 60.7 % (37.0-80.0) Lymphocytes (%) (Auto) 21.8 % (10.0-50.0) Monocytes (%) (Auto) 14.2 % (0.0-12.0) Eosinophils (%) (Auto) 2.4 % (0.0-7.0) Basophils (%) (Auto) 0.9 % (0.0-2.0) Neutrophils # (Auto) 2.5 10 ^3/uL (1.6-8.6) Lymphocytes # (Auto) 0.9 10 ^3/uL (0.4-5.4) Monocytes # (Auto) 0.6 10 ^3/uL (0-1.3) Eosinophils # (Auto) 0.1 10 ^3/uL (0-0.8) Basophils # (Auto) 0 10 ^3/uL (0-0.2) Nucleated Red Blood Cells 0.2 % Prothrombin Time 10.9 sec (9.3-11.8) Prothromb Time International Ratio 1.03 (0.9-1.15) Activated Partial Thromboplast Time 30.7 SEC (24.5-34.5) Sodium Level 138 mmol/L (136-145) Potassium Level 4.0 mmol/L (3.5-5.1) Chloride Level 100 mmol/L (98-107) Carbon Dioxide Level 29 mmol/L (20-31) Anion Gap 9 (5-15) Blood Urea Nitrogen 7 mg/dL (9-23) Creatinine 0.72 mg/dL (0.700-1.30) Glomerular Filtration Rate Calc 105 mL/min (>90) BUN/Creatinine Ratio 9.7 (10.0-20.0) Serum Glucose 78 mg/dL (74-106) Calcium Level 10.1 mg/dL (8.7-10.4) Total Bilirubin 0.9 mg/dL (0.2-1.0) Aspartate Amino Transf (AST/SGOT) 70 U/L (13-40) Alanine Aminotransferase (ALT/SGPT) 58 U/L (7-40) Alkaline Phosphatase 115 U/L (46-116) Ammonia 33 umol/L (11-32) Total Protein 6.5 g/dL (5.7-8.2) Albumin 4.2 g/dL (3.2-4.8) Microbiology Date/Time Source Procedure Growth Status 11/28/24 01:45 Blood Blood Culture - Preliminary NO GROWTH AFTER 72 HOURS OF INCUBATION. Resulted Appetite: Fair Appearance: Stated age, Groomed Psychomotor activity: WNL Behavioral: Cooperative Eye contact: Appropriate Speech: WNL Affect: Mood Congruent Mood: Depressed Thought content: WNL, Hallucinations (visual) Suicidal ideations: Absent Homicidal ideations: Absent Orientation: Person, Place, Time, Situation Memory intact: Recent Intellect: Average Abstractability: WNL Concentration: Adequate Attention: Adequate Judgement: WNL Insight: Fair Vitals Vital Signs Date Time Temp Pulse Resp B/P (MAP) Pulse Ox O2 Delivery O2 Flow Rate FiO2 12/01/24 19:45 98.1 66 17 118/79 (92) 93 98.1 12/01/24 18:50 Room Air* 0 21 Current medications Current Medications Medications Dose Ordered Sig/Tere Route Start Time Stop Time Status Last Admin Dose Admin Enoxaparin Sodium 80 mg Q12HR SC 11/28/24 10:00 12/01/24 09:32 80 MG Lisinopril 10 mg DAILY PO 11/28/24 10:00 12/01/24 09:33 10 MG Albuterol 2.5 mg Q6HPRN PRN NEB 11/27/24 22:15 Acetaminophen/ Hydrocodone Bitart 1 tab Q4HP PRN PO 11/27/24 22:15 11/28/24 06:07 1 TAB Ondansetron HCl 4 mg Q4HP PRN IV 11/27/24 22:15 Acetaminophen 650 mg Q6HP PRN PO 11/27/24 22:15 11/30/24 20:13 650 MG Nitroglycerin 0.4 mg Q5MINP PRN SL 11/27/24 22:15 Morphine Sulfate 2 mg Q30M PRN IV 11/27/24 22:15 Ceftriaxone Sodium 50 ml @ 100 mls/hr DAILY@09 IV 11/28/24 01:30 12/01/24 09:32 100 MLS/HR Colchicine 0.6 mg DAILY PO 11/30/24 10:00 12/01/24 09:33 0.6 MG Ergocalciferol 50,000 unit Q7D PO 11/29/24 14:15 11/29/24 18:58 50,000 UNIT Warfarin Sodium 5 mg DAILY@17 PO 12/01/24 09:00 UNV Warfarin Sodium RX PROTOCOL PER PHARMACY PO 12/01/24 15:30 Treatment plan discussed: Family Medication adjusted: Yes Diagnosis: delirium v unspecified psychosis unspecified mood disorder alcohol abuse disorder Plan : This is a 59-year-old male here for PE and recent DVT. He also has a UTI which may contribute to his delirium Patient has hx of alcohol abuse, alcohol withdrawal may also contribute to hallucinations. He denies prior hx of hallucinations. Recommend starting zoloft 25mg po daily for depression Risperdal 0.5mg po BID for hallucination Recommend re-evaluation or follow up outpatient for medication management thiamine History of Present Illness Reason for Consult : Psychiatric consult for visual hallucinations HPI : This is a 59-year-old male with no known prior psychiatric history, he presented to the hospital with chief compliant of pulmonary embolism and DVT. He also has a UTI On evaluation, patient was alert oriented x4. Daughter was at bedside. he reports feeling depressed since one year ago. He reports decreased appetite and losing over 10 pounds. He reports poor sleep, believes he is sleeping about 6 hours but interrupted. He often has low moods with thoughts of hopelessness. He denies suicidal/homicidal ideation He reports years history of alcohol abuse, drinks about 6-13 beers and sometimes 2-3 shots of hard liquor daily. He reports alcohol use has decreased in the last year by about 75%. He does drink daily. He denies any history of withdrawal symptoms or seizures, last drink was prior to admission here. He reports while admitted here, he has been having visual hallucinations, today, he believed he saw his son in the room, next to his bed. He also reported feelings of driving upside down. He denies auditory hallucinations. He denies paranoid thoughts. He denies hallucinating prior to his admission here. Daughter is concerned with hallucinations because she has young children and wants treatment. Daughter, reports sometimes he is forgetful. For example, had instances of waki ng up on the wrong day and going to work when not scheduled, or showing up at the wrong time. This has occurred about 3 times over the years. He denies problems with his memory. Past Psychiatric History : He denies prior psych admissions, holds, or suicide attempt. He denies current outpatient health problems. He denies prior psychiatric diagnosis or use of psychotropic medications. He did receive a one- time dose here of Haldol for hallucinations. Past Medical History : Hx of HTN Social History : He is . His daughter and family live with him in his house. He is employed as a fork explosives truck driver. He reports daily alcohol use. He denies any other substance use. Toxicology is negative. No known nicotine use. He denies any known family history. [facility] Dec 01, 2024 21:57
--- NOTE | 2024-12-01 23:05 | DVHPN2 ---
Progress Note - Dictate Date Seen: Dec 01, 2024 Has the PT tested + for MRSA If YES, has PT been informed?: No Medical Necessity Reason Pt with a Central, PICC or Fol: No Subjective Patient seen and examined at bedside. Breathing comfortably on room air. Overnight events reviewed. vital signs Vital Sign Date Time Temp Pulse Resp B/P (MAP) Pulse Ox O2 Delivery O2 Flow Rate FiO2 12/01/24 20:00 66 17 93 Room Air* 0 21 12/01/24 19:45 98.1 118/79 (92) 98.1 Total Intake and Output 11/30/24 11/30/24 12/01/24 15:00 23:00 07:00 Intake Total 50 ml 400 ml 2300 ml Output Total 1250 ml 2310 ml Balance 50 ml -850 ml -10 ml medications Current Medications Medications Dose Ordered Sig/Tere Route Start Time Stop Time Status Last Admin Dose Admin Enoxaparin Sodium 80 mg Q12HR SC 11/28/24 10:00 12/01/24 21:19 80 MG Lisinopril 10 mg DAILY PO 11/28/24 10:00 12/01/24 09:33 10 MG Albuterol 2.5 mg Q6HPRN PRN NEB 11/27/24 22:15 Acetaminophen/ Hydrocodone Bitart 1 tab Q4HP PRN PO 11/27/24 22:15 11/28/24 06:07 1 TAB Ondansetron HCl 4 mg Q4HP PRN IV 11/27/24 22:15 Acetaminophen 650 mg Q6HP PRN PO 11/27/24 22:15 11/30/24 20:13 650 MG Nitroglycerin 0.4 mg Q5MINP PRN SL 11/27/24 22:15 Morphine Sulfate 2 mg Q30M PRN IV 11/27/24 22:15 Ceftriaxone Sodium 50 ml @ 100 mls/hr DAILY@09 IV 11/28/24 01:30 12/01/24 09:32 100 MLS/HR Colchicine 0.6 mg DAILY PO 11/30/24 10:00 12/01/24 09:33 0.6 MG Ergocalciferol 50,000 unit Q7D PO 11/29/24 14:15 11/29/24 18:58 50,000 UNIT Warfarin Sodium 5 mg DAILY@17 PO 12/01/24 09:00 UNV Warfarin Sodium RX PROTOCOL PER PHARMACY PO 12/01/24 15:30 objective Gen.: Patient lying in bed in no apparent distress. Breathing on room air. Head: Normocephalic, atraumatic. Eyes: EOMI/PERRLA. Ears: Normal hearing. Normal anatomy. Neck/trachea: Trachea midline, supple. Nose: Normal external anatomy. Mouth: Moist mucous membranes. Chest: Decreased air entry bilaterally. No wheezing or rhonchi. Cardiovascular: Positive S1, positive S2. Regular rate and rhythm. Abdomen: Positive bowel sounds in all 4 quadrants. Soft, non-tender, non- distended. : Deferred. Rectal: Deferred. Skin: Warm, dry. Intact. Extremities: 2+ radial pulses bilaterally. No lower extremity edema. Neuro: Awake, alert, oriented x3. No gross motor or sensory deficits. Cranial nerves II through XII intact. Gait not assessed. laboratory and microbiology Laboratory Tests 12/01/24 04:55 Test 12/01/24 04:55 Range/Units Serum Glucose 78 74-106 mg/dL Assessment/Plan Impression: Acute hypoxic respiratory failure Pulmonary emboli, bilateral lower lobe subsegmental Deep vein thrombosis in the left lower extremity Acute metabolic/toxic encephalopathy Acute transaminitis Acute delirium Urinary tract infection Events: Breathing on room air Supplemental oxygen PRN No distress Alert and oriented, no hallucinations Denies any pain Continue antibiotics On antihypertensive medication Warfarin Monitor INR Labs and imaging reviewed. Rest of plan as noted below. Plan: Supplemental oxygen PRN Titrate to keep O2 sats above 92%. Head of bed elevation Aspiration precautions Continue antibiotics Blood cultures showed no growth after 72 hours Incentive spirometry Monitor renal function. Monitor electrolytes. Supplement as necessary. Monitor ins and outs. Monitor INR goal 2-3 On warfarin with Lovenox bridge DVT prophylaxis. Therapeutic Lovenox bridge, on warfarin Prognosis: Poor given patient's multiple co-morbidities. Rest of plan per hospitalist and other consultants. Thank you Dr. Queen for allowing me to participate in this patient's care. Further recommendations will depend on the patient's clinical course. Please do not hesitate to contact me if you have any questions or concerns. This medical document was created using an electronic medical record system with [email or web address] system. Although these documentations are being carefully reviewed, there may still be some phonetic and typographical changes. The errors are purely typographical, due to imperfection on the software program, and do not reflect any compromise in the patient's medical care. Dietary Evaluation Review Comments: Continue current plan of care Expected Outcomes/Goals: To meet >75% estimated needs Fu 3-5 days Plan discussed with: Patient, Other (CASSIE Fitzpatrick) JEROME HAWKINS MD Dec 01, 2024 23:05
[2024-12-02] VITALS (9 sets, daily range): BP systolic 109–116; BP diastolic 69–73; PULSE 58–89; RESP 16–18; TEMP 36.9; O2SAT 94–100
[2024-12-02 07:07] LABS: INR 1.34 (0.9-1.15); Partial Thromboplastin Time 34.5 SEC (24.5-34.5); Prothrombin Time 13.8 sec (9.3-11.8)
[2024-12-02 07:11] LABS: Alkaline Phosphatase 105 U/L (46-116); Anion Gap 12 (5-15); BUN/Creatinine Ratio 7.8 (10.0-20.0); Basophils # (auto) 0 10 ^3/uL (0-0.2); Basophils % (auto) 1.1 % (0.0-2.0); Calcium 9.9 mg/dL (8.7-10.4); Carbon Dioxide 25 mmol/L (20-31); Chloride 100 mmol/L (98-107); Eosinophils # (auto) 0.1 10 ^3/uL (0-0.8); Eosinophils % (auto) 1.6 % (0.0-7.0); Glucose 76 mg/dL (74-106); Hematocrit 49.5 % (41.0-53.0); Hemoglobin 16.6 g/dL (13.5-17.5); Lymphocytes # (auto) 0.8 10 ^3/uL (0.4-5.4); Lymphocytes % (auto) 18.5 % (10.0-50.0); Mean Corpuscular Hgb Conc. 33.5 g/dL (32.0-36.0); Mean Corpuscular Volume 101.5 fL (80.0-100.0); Monocytes # (auto) 0.5 10 ^3/uL (0-1.3); Monocytes % (auto) 11.5 % (0.0-12.0); Neutrophils # (auto) 2.9 10 ^3/uL (1.6-8.6); Neutrophils % (auto) 67.3 % (37.0-80.0); Nucleated Red Blood Cells % 0.1 %; Platelet Count (auto) 295 10^3/uL (140-450); Potassium 3.6 mmol/L (3.5-5.1); Red Blood Cells 4.88 10^6/uL (4.5-5.90); Red Cell Distribution Width 12.3 % (11.8-14.3); Sodium 137 mmol/L (136-145); Total Protein 6.3 g/dL (5.7-8.2); White Blood Cell 4.3 10^3/uL (4.4-10.8)
[2024-12-02 07:12] LABS: Albumin 4.1 g/dL (3.2-4.8); Bilirubin, Total 0.8 mg/dL (0.2-1.0)
[2024-12-02 07:15] LABS: Alanine Aminotransferase 70 U/L (7-40); Aspartate Aminotransferase 84 U/L (13-40); Blood Urea Nitrogen 6 mg/dL (9-23)
--- NOTE | 2024-12-02 11:28 | DVHDSRES ---
Discharge Summary Date of Admission Resident Creating Document: JORGE MARCANO RESIDENT Nov 27, 2024 at 22:11 Date of Discharge: Dec 02, 2024 Admitting Diagnosis Acute hypoxic respiratory failure Wounds: No wounds present at this time Labs/Diagnostic Data: Laboratory Results Test 12/02/24 05:20 12/01/24 04:55 12/01/24 01:30 11/29/24 14:22 White Blood Count 4.3 10^3/uL (4.4-10.8) Red Blood Count 4.88 10^6/uL (4.5-5.90) Hemoglobin 16.6 g/dL (13.5-17.5) Hematocrit 49.5 % (41.0-53.0) Mean Corpuscular Volume 101.5 fL (80.0-100.0) Mean Corpuscular Hemoglobin 34.0 pg (28.0-32.0) Mean Corpuscular Hemoglobin Concent 33.5 g/dL (32.0-36.0) Red Cell Distribution Width 12.3 % (11.8-14.3) Platelet Count 295 10^3/uL (140-450) Mean Platelet Volume 7.9 fL (6.9-10.8) Neutrophils (%) (Auto) 67.3 % (37.0-80.0) Lymphocytes (%) (Auto) 18.5 % (10.0-50.0) Monocytes (%) (Auto) 11.5 % (0.0-12.0) Eosinophils (%) (Auto) 1.6 % (0.0-7.0) Basophils (%) (Auto) 1.1 % (0.0-2.0) Neutrophils # (Auto) 2.9 10 ^3/uL (1.6-8.6) Lymphocytes # (Auto) 0.8 10 ^3/uL (0.4-5.4) Monocytes # (Auto) 0.5 10 ^3/uL (0-1.3) Eosinophils # (Auto) 0.1 10 ^3/uL (0-0.8) Basophils # (Auto) 0 10 ^3/uL (0-0.2) Nucleated Red Blood Cells 0.1 % Prothrombin Time 13.8 sec (9.3-11.8) Prothrombin Time INR 1.34 (0.9-1.15) Activated Partial Thromboplast Time 34.5 SEC (24.5-34.5) Sodium Level 137 mmol/L (136-145) Potassium Level 3.6 mmol/L (3.5-5.1) Chloride Level 100 mmol/L (98-107) Carbon Dioxide Level 25 mmol/L (20-31) Anion Gap 12 (5-15) Blood Urea Nitrogen 6 mg/dL (9-23) Creatinine 0.77 mg/dL (0.700-1.30) Glomerular Filtration Rate Calc 102 mL/min (>90) BUN/Creatinine Ratio 7.8 (10.0-20.0) Serum Glucose 76 mg/dL (74-106) Calcium Level 9.9 mg/dL (8.7-10.4) Total Bilirubin 0.8 mg/dL (0.2-1.0) Aspartate Amino Transferase (AST) 84 U/L (13-40) Alanine Aminotransferase (ALT) 70 U/L (7-40) Alkaline Phosphatase 105 U/L (46-116) Total Protein 6.3 g/dL (5.7-8.2) Albumin 4.1 g/dL (3.2-4.8) Ammonia 33 umol/L (11-32) Urine Opiates Screen Neg (NEGATIVE) Urine Fentanyl Screen Neg (NEGATIVE) Urine Barbiturates Screen Neg (NEGATIVE) Urine Phencyclidine Screen Neg (NEGATIVE) Urine Amphetamines Screen Neg (NEGATIVE) Urine Benzodiazepines Screen Neg (NEGATIVE) Urine Cocaine Screen Neg (NEGATIVE) Urine Cannabinoids Screen Neg (NEGATIVE) Plasma/Serum Blood Alcohol 3.7 mg/dL (<10) Test 11/29/24 05:15 11/29/24 03:50 11/28/24 10:57 11/28/24 05:04 Hemoglobin A1c 4.4 % A1C (<5.7) Lactic Acid Level 1.1 mmol/L (0.4-2.0) Phosphorus Level 3.6 mg/dL (2.4-5.1) Magnesium Level 1.9 mg/dL (1.6-2.6) Triglycerides Level 145 mg/dL (< 150) Cholesterol Level 161 mg/dL (< 200) LDL Cholesterol 107 mg/dL (< 100) HDL Cholesterol 30 mg/dL (40-59) Vitamin B12 Level 655 pg/mL (211-911) Vitamin D 25-Hydroxy 29.8 ng/mL (30.0-100) Thyroid Stimulating Hormone (TSH) 9.96 uIU/mL (0.55-4.78) Free Thyroxine (T4) Calculated 0.91 ng/dL (0.89-1.76) Blood Gas Specimen Type Arterial Blood Gas Sample Site Right radial Blood Gas Patient Temperature 37.0 Arterial Blood Date Drawn [id number] Arterial Blood pH 7.463 (7.350-7.450) Arterial Blood Partial Pressure CO2 31.6 mmHg (35.0-48.0) Arterial Blood Partial Pressure O2 67.2 mmHg (83.0-108.0) Arterial Blood HCO3 22.1 mmol/L (21.0-28.0) Arterial Blood Oxygen Saturation 93.2 % (94.0-98.0) Arterial Blood Base Excess -0.5 mmol/L (-2.0-3.0) Arterial Blood Oxyhemoglobin 91.7 % (94.0-98.0) Arterial Blood Carboxyhemoglobin 1.0 % (0.5-1.5) Arterial Blood Methemoglobin 0.6 % (0.0-1.5) Ryder Test Modified Blood Gas Total Hemoglobin 17.70 g/dL (13.5-17.5) Blood Gas Modality Room air FiO2 % 21.0 Tumor Marker Alpha Fetoprotein 5.5 ng/mL (0.0-8.4) CA 19-9 Antigen 5 u/ml Free Prostate Specific Antigen 0.10 ng/mL (N/A) Percent Free Prostate Specific Ag 14.3 % (.) Prostate Specific Antigen Total 0.7 ng/mL (0.0-4.0) Carcinoembryonic Antigen < 0.50 ng/mL (<=5.0) Hepatitis A Antibody Total Positive (Negative) Hepatitis B Surface Antigen Negative (Negative) Hepatitis B Surface Antibody Negative (Negative) Hepatitis B Core Total Antibody Negative (Negative) Hepatitis C Antibody Negative (Negative) Test 11/27/24 22:37 11/27/24 20:59 11/27/24 20:20 11/27/24 18:08 Hepatitis A IgM Antibody Negative Hepatitis B Core IgM Antibody Negative (Negative) Troponin I High Sensitivity < 3 ng/L (</=54) Urine Color Light-orange (Yellow) Urine Clarity Clear (Clear) Urine pH 6.5 (5.0-9.0) Urine Specific [place] 1.024 (1.001-1.035) Urine Protein Negative (Negative) Urine Ketones 2+ (Negative) Urine Blood Trace /uL (Negative) Urine Nitrite Negative (Negative) Urine Bilirubin Negative (Negative) Urine Urobilinogen 2 mg/dL (Negative) Urine Leukocyte Esterase Negative /uL (Negative) Urine RBC 17 /hpf (0 - 3) Urine Microscopic WBC 3 /HPF (0-3) Urine Squamous Epithelial Cells Few /hpf (<5) Urine Bacteria Few /hpf (None Seen) Urine Mucus Few (None Seen) Urine Glucose Normal mg/dL (Normal) Erythrocyte Sedimentation Rate 11 mm/hr (0-20) Uric Acid 6.1 mg/dL (3.7-9.2) Creatine Kinase 28 U/L (46-171) C-Reactive Protein High Sensitivity 4.42 mg/dL (<1.0) Test 11/27/24 17:33 Blood Gas Critical Value Read Back Yes Blood Gas Notified Whom sawyer Lee md Blood Gas Notified Time [id number] Blood Gas Notified By gurmeet Bajwa rrt Other Laboratory Tests 12/02/24 05:20 Brief Hx & Hospital Course: This is a 59-year-old male with past medical history of hypertension and previous history of DVT who presented to the ED for further evaluation of bilateral leg pain. The patient reported that he was recently diagnosed with left lower extremity DVT on 11/20/2024 and was discharged initially on Eliquis from [facility]. Afterwards he went to another hospital where he had similar diagnosis one week later and he was switched to Xarelto 50 mg b.i.d.. Patient reported that he has been feeling right lower extremity swelling and tenderness since the past three days. Patient denied fever/chills, chest pain, shortness of breath or any other associated symptoms at this time. Initial labs showed a CBC in normal range, BNP was unremarkable as well. AST, ALT total bilirubin and alkaline phosphatase were all elevated. Right and left foot x-ray were both unremarkable. Bilateral lower venous Doppler was performed showing left leg DVT in the left distal superficial femoral vein, popliteal vein and posterior tibialis pain. A CT angio of the chest was performed showing bilateral lower subsegmental pulmonary embolism. Patient was started on enoxaparin therapeutic dose. During hospitalization stay, patient has been on room air saturating above 95% with no respiratory distress. Patient has had several episodes of the lithium associated with visual hallucinations and weird/odds thoughts. Per family, these episodes are completely new to the patient. We consulted tele psych to have a further assessment of possible underlying dementia or schizophrenia. When examined the patient today, patient is alert and oriented in person, place and time but seems like occasionally has episodes of delirium. Patient has been hemodynamically stable, on room air, denies chest pain, shortness of breath, fever/chills, abdominal tenderness or any other complaints at this time. Patient is completely stable to get transferred to [place] at this time. Sculpture Instructor was consulted for possible transfer to [place]. Plan was discussed with patient and family. ROS Constitutional: Denies weight loss, fever and chills. HEENT: Denies changes in vision and hearing. Respiratory: Denies shortness of breath and cough Cardiovascular: Denies chest discomfort or palpitations GI: Denies abdominal pain, nausea, vomiting and diarrhea. : Denies dysuria and urinary frequency. Musculoskeletal: Denies myalgias and joint pain Skin: Denies rash and pruritus. Neurological: Denies dizziness, headache, vision or hearing problems Physical Examination General: Patient alert and oriented but ocassional has episodes of delirium with visual hallucinations. Patient follows commands. HEENT: Normocephalic, atraumatic, moist mucous membranes Respiratory/pulmonary: Clear lungs bilaterally, no associated crackles or wheezes. Cardiovascular: Normal heart sounds S1 and S2 with no associated murmurs Abdomen: Abdomen nondistended, there is no pain to palpation in any of the abdominal quadrants, no palpable masses. Extremities: There is right big toe inflammation likely due to gout attack. There is no peripheral edema present at the lower extremities. Peripheral Pulses: 3+ Radial (R). 3+ Radial (L). 3+ Dorsalis pedis (R). 3+ Dorsalis pedis(L) Skin: No rashes or pruritus, there is no sacral edema present at this time. Neurological: Intact cranial nerves with no focal neurologic deficits Consults/Reason for consult N/A Operations or Procedures CLINICAL INDICATION: pain TECHNIQUE: XY R FOOT 3 VIEW XRAY Comparison: None FINDINGS: No osseous or joint abnormality identified with no fracture or dislocation. Joint spaces are normal. Mild arterial calcifications noted. IMPRESSION: No acute abnormality demonstrated. CLINICAL INDICATION: pain TECHNIQUE: XY L FOOT 3 VIEW XRAY Comparison: None FINDINGS: No osseous or joint abnormality identified with no fracture or dislocation. Joint spaces are normal. Small calcaneal spur. Mild arterial calcifications noted. IMPRESSION: No acute abnormality demonstrated. Bilateral lower extremity venous duplex Clinical History: BLE swelling/pain Comparison: None Technique: Duplex Doppler evaluation of the deep venous systems of both lower extremities from the common femoral veins to the popliteal veins including color Doppler and spectral/pulsed waveform analysis was performed. Findings: RIGHT SIDE: The common femoral vein demonstrates appropriate compressibility and waveform variability. There is compressibility/patency of the great saphenous vein at the proximal thigh. The femoral vein demonstrates appropriate compressibility and waveform variability. The popliteal vein demonstrates appropriate compressibility and waveform variability. There is normal compressibility at the tibioperoneal trunk. LEFT SIDE: The common femoral vein demonstrates appropriate compressibility and waveform variability. There is compressibility/patency of the great saphenous vein at the proximal thigh. The proximal to mid superficial femoral vein demonstrates appropriate compressibility and waveform variability. There is evidence of thrombus in the distal superficial femoral vein. The popliteal vein and posterior tibial vein demonstrate evidence of occlusive thrombus. Impression: Evidence of left leg DVT in left distal superficial femoral vein, popiteal vein and posterior tibial vein. No evidence of right femoropopliteal venous thrombosis. EXAM: CT CT ANGIO CHEST CONTRAST History: dvt Comparison Study: None available TECHNIQUE: A digital telegraph lineman image was obtained. During the uneventful, intravenous administration of contrast material, multislice data acquisition was obtained through the chest. 3-D postprocessing is performed by technologist including MIP imaging Radiation Dose : CTDI vol 23.68 mGy, DLP 1067.93 mGy*cm. Findings: Lungs: The lungs are clear. Pleura: Unremarkable Heart/Great vessels: No cardiomegaly or pericardial effusion. No aneurysm or dissection. Bilateral lower lobe subsegmental pulmonary emboli. Mediastinum: Unremarkable Soft tissues/Bones: Mild multilevel degenerative changes of the thoracic spine. The partially visualized upper abdomen is within normal limits. Impression: 1. Bilateral lower lobe subsegmental pulmonary emboli. 2. No evidence of aneurysm or dissection. Critical Result: Pumonary Emboli INDICATION: Transaminitis TECHNIQUE: Multiple real-time sonographic images of the abdomen were obtained. COMPARISON: None FINDINGS: Liver is normal in size measuring 15.8 cm and echogenicity with no lesions identified. There is no intrahepatic or extrahepatic biliary ductal dilatation with the common bile duct measuring 5 mm. Gallbladder appears unremarkable with no evidence of stones or wall thickening. Right kidney measures 11.9 cm and appears unremarkable with no hydronephrosis. Pancreas is obscured by overlying bowel gas. No fluid collection noted. IMPRESSION: No abnormality demonstrated. EXAM: US Duplex Bilateral Lower Extremities Arteries CLINICAL INDICATION: PVD TECHNIQUE: Real-time duplex ultrasound scan of the bilateral lower extremity arteries integrating B-mode two-dimensional vascular structure, Doppler spectral analysis and color flow Doppler imaging. COMPARISON: None FINDINGS: RIGHT COMMON FEMORAL ARTERY: No acute findings. No occlusion or significant stenosis on color flow and spectral Doppler imaging. Normal waveform. RIGHT SUPERFICIAL FEMORAL ARTERY: Peak systolic velocity in the right superficial femoral artery is 105 cm/s. Triphasic waveform. RIGHT POPLITEAL ARTERY: Peak systolic velocity in the right popliteal artery is 79 cm/s. Triphasic waveform. RIGHT CALF/FOOT ARTERIES: Peak systolic velocity in the right posterior tibial artery is 68 cm/s. Triphasic waveform. Right DPA triphasic. LEFT COMMON FEMORAL ARTERY: No acute findings. No occlusion or significant stenosis on color flow and spectral Doppler imaging. Normal waveform. LEFT SUPERFICIAL FEMORAL ARTERY: Peak systolic velocity in the left superficial femoral artery is 104 cm/s. Triphasic waveform. LEFT POPLITEAL ARTERY: Peak systolic velocity in the left popliteal artery is 72 cm/s. Triphasic waveform. LEFT CALF/FOOT ARTERIES: Peak systolic velocity in the left posterior tibial artery is 71 cm/s. Triphasic waveform. Peak systolic velocity in the left dorsalis pedis artery is 33 cm/s. Triphasic waveform. SOFT TISSUES: Unremarkable. OTHER FINDINGS: . . IMPRESSION: No acute findings in the bilateral lower extremity arteries. EXAM: CT Head Without Intravenous Contrast CLINICAL INDICATION: Reason TECHNIQUE: Axial computed tomography images of the head/brain without intravenous contrast. This CT exam was performed using one or more of the following dose reduction techniques: automated exposure control, adjustment of the mA and/or kV according to patient size, and/or use of iterative reconstruction technique. CONTRAST: RADIATION DOSE: CTDIvol = 59.63 mGy, DLP = 1075.0 mGy-cm COMPARISON: None FINDINGS: BRAIN AND EXTRA-AXIAL SPACES: No acute intracranial hemorrhage, midline shift or mass effect. If symptoms persist, further evaluation with MRI is recommended. No significant white matter disease. BONES/JOINTS: Unremarkable. No acute fracture. SOFT TISSUES: Unremarkable. SINUSES: Mucosal thickening of the right maxillary sinus. MASTOID AIR CELLS: Unremarkable as visualized. No mastoid effusion. OTHER FINDINGS: . . IMPRESSION: No acute intracranial hemorrhage, midline shift or mass effect. If symptoms persist, further evaluation with MRI is recommended. EXAMINATION: MRI BRAIN HEAD WO CONTRAST INDICATION: RECCOMENDATION FROM CT, TIA COMPARISON: None TECHNIQUE: Multiplanar, multisequence magnetic resonance imaging of the brain was performed without the use of intravenous contrast. FINDINGS: No evidence of acute or remote infarct. No intracranial hemorrhage. No mass effect. There is periventricular/deep white matter T2/FLAIR hyperintensity is nonspecific, but most commonly associated with chronic microvascular disease. The ventricles and sulci are normal in size for age. Clear basal cisterns. Flow voids in the major intracranial vessels are maintained. No abnormality of the orbits. Paranasal sinuses and mastoid air cells are clear. No abnormality of the visualized osseous structures and extracranial soft tissues. IMPRESSION: No acute infarct, intracranial hemorrhage, mass effect, or hydrocephalus. Patient Name: KD WATSON Patient : 1965 Patient Gender: Male Patient Class: Inpatient Patient Location: [facility] Reading Location: [facility] [place]. Doc: Gustavo Dye Ord. Doc:JORGE SNEED RESIDENT DOS: 11/29/2024 Signed Date: 11/29/2024 Status: Draft Procedure: MRI MRI ABD PLEVIS W/WO CONT EXAM: MRI ABD PLEVIS W/WO CONT COMPARISON: No prior imaging of the abdomen pelvis INDICATION: CONTRAST: Type of contrast: Contrast injected: Contrast wasted: 0 TECHNIQUE: MRI abdomen was performed with and without intravenous contrast. FINDINGS: Lung bases and heart appear to be grossly unremarkable. Spleen is enlarged at 12.9 cm. Common bile duct measures 4.5 mm intrahepatic bile ducts are not dilated. Gallbladder is generally unremarkable Pancreatic duct over the head of the pancreas measures 3.75 mm which is slightly enlarged there is bilateral perinephric stranding which is nonspecific. Left adrenal is unremarkable. Right adrenals unremarkable. There is no evidence for restricted diffusion bladder is unremarkable. Prostate appears to be small gastrointestinal tract is unremarkable except for multiple diverticuli in the sigmoid in the descending colon signals within the bones are normal rectosigmoid appears to be grossly unremarkable there are no fluid collections in the abdomen or pelvis there are no focal lesions in the kidneys liver . There are no fluid collections in the cul-de-sac pelvis and muscles of the pelvic girdle appear to be unremarkable Condition at Discharge: Stable Final Diagnosis/Problems List Acute hypoxic respiratory distress likely due to pulmonary embolism Acute DVT on left lower extremity Acute metabolic/toxic encephalopathy, likely due to sepsis Acute transaminitis and hyperbilirrubinemia Acute delirium, unknown source likely due to UTI UTI Acute gout flare Primary hypertension Possible hypothyroidism Discharge Disposition: Acute Care Facility Discharge Instruct/Medications Diet: Regular Activity: No Restrictions, As Tolerated Follow Up/Referral: F/U with his PCP in 1 week Medications: Warfarin 5mg daily Discharge Statement: "Patient was advised to return to the ER or call 911 if any headaches, dizziness, shortness of breath, chest pain, abdominal pain, bleeding, fevers, or worsening of medical condition. Patient was counseled about treatment plan, medications, possible side effects, patientverbalized understanding. All questions were answered to the best of my ability. This discharge took greater then 30 minutes in planning, reviewing documentation, counseling the patient, and discussing with other team members." ASSESSMENT ASSESSMENT Assessment Acute hypoxic respiratory distress likely due to pulmonary embolism Acute DVT on left lower extremity Acute metabolic/toxic encephalopathy, likely due to sepsis Acute transaminitis and hyperbilirrubinemia Acute delirium, unknown source likely due to UTI UTI Acute gout flare Primary hypertension Possible hypothyroidism Date of Service: Dec 02, 2024 Billing Provider: GRETA PEPPER MD Common Visit Codes: 89241-LIZ/OBS DISCH DAY >30min JORGE MARCANO RESIDENT Dec 02, 2024 11:28 GRETA PEPPER MD Dec 02, 2024 19:19
[2024-12-02] MEDS: FOLIC ACID 1 MG, MAGNESIUM SULF SDV 50% 8 MEQ, MULTIPLE VITAMIN 10 ML, THIAMINE INJ 100... INJ SCH (15:30)
[2024-12-02] MEDS: WARFARIN SODIUM 5 MG TAB PO ONE (17:12)
--- NOTE | 2024-12-02 20:13 | DVHPN2 ---
Progress Note - Dictate Date Seen: Dec 02, 2024 Has the PT tested + for MRSA If YES, has PT been informed?: No Medical Necessity Reason Pt with a Central, PICC or Fol: No Subjective Patient seen and examined at bedside. Breathing comfortably on room air. Overnight events reviewed. vital signs Vital Sign Date Time Temp Pulse Resp B/P (MAP) Pulse Ox O2 Delivery O2 Flow Rate FiO2 12/02/24 17:00 98.4 70 17 116/69 (85) 98 98.4 12/02/24 10:17 Room Air 12/02/24 10:17 0 21 Total Intake and Output 12/01/24 12/01/24 12/02/24 15:00 23:00 07:00 Intake Total 1000 ml 800 ml Output Total 1400 ml 1325 ml Balance -400 ml -525 ml medications Current Medications Medications Dose Ordered Sig/Tere Route Start Time Stop Time Status Last Admin Dose Admin Enoxaparin Sodium 80 mg Q12HR SC 11/28/24 10:00 12/02/24 09:38 80 MG Lisinopril 10 mg DAILY PO 11/28/24 10:00 12/02/24 09:39 10 MG Albuterol 2.5 mg Q6HPRN PRN NEB 11/27/24 22:15 Acetaminophen/ Hydrocodone Bitart 1 tab Q4HP PRN PO 11/27/24 22:15 11/28/24 06:07 1 TAB Ondansetron HCl 4 mg Q4HP PRN IV 11/27/24 22:15 Acetaminophen 650 mg Q6HP PRN PO 11/27/24 22:15 11/30/24 20:13 650 MG Nitroglycerin 0.4 mg Q5MINP PRN SL 11/27/24 22:15 Morphine Sulfate 2 mg Q30M PRN IV 11/27/24 22:15 Ceftriaxone Sodium 50 ml @ 100 mls/hr DAILY@09 IV 11/28/24 01:30 12/02/24 09:37 100 MLS/HR Colchicine 0.6 mg DAILY PO 11/30/24 10:00 12/02/24 09:39 0.6 MG Ergocalciferol 50,000 unit Q7D PO 11/29/24 14:15 11/29/24 18:58 50,000 UNIT Warfarin Sodium 5 mg DAILY@17 PO 12/01/24 09:00 UNV Warfarin Sodium RX PROTOCOL PER PHARMACY PO 12/01/24 15:30 Folic Acid 1 mg/ Magnesium Sulfate 8 meq/ Multivitamins 10 ml/Thiamine HCl 100 mg/Sodium Chloride 1,013.2 ml @ 126.247 mls/hr DAILY@1800 INJ 12/02/24 15:30 objective Gen.: Patient lying in bed in no apparent distress. Breathing on room air. Head: Normocephalic, atraumatic. Eyes: EOMI/PERRLA. Ears: Normal hearing. Normal anatomy. Neck/trachea: Trachea midline, supple. Nose: Normal external anatomy. Mouth: Moist mucous membranes. Chest: Decreased air entry bilaterally. No wheezing or rhonchi. Cardiovascular: Positive S1, positive S2. Regular rate and rhythm. Abdomen: Positive bowel sounds in all 4 quadrants. Soft, non-tender, non- distended. : Deferred. Rectal: Deferred. Skin: Warm, dry. Intact. Extremities: 2+ radial pulses bilaterally. No lower extremity edema. Neuro: Awake, alert, oriented x3. No gross motor or sensory deficits. Cranial nerves II through XII intact. Gait not assessed. laboratory and microbiology Laboratory Tests 12/02/24 05:20 Test 12/02/24 05:20 Range/Units Serum Glucose 76 74-106 mg/dL Assessment/Plan Impression: Acute hypoxic respiratory failure Pulmonary emboli, bilateral lower lobe subsegmental Deep vein thrombosis in the left lower extremity Acute metabolic/toxic encephalopathy Acute transaminitis Acute delirium Urinary tract infection Events: Remains on room air Supplemental oxygen PRN No distress Continue bronchodilators Continue antibiotics On antihypertensive medication Therapeutic Lovenox bridge, on warfarin Monitor INR Patient is being transferred to [facility]. Labs and imaging reviewed. Rest of plan as noted below. Plan: Supplemental oxygen PRN Titrate to keep O2 sats above 92%. Head of bed elevation Aspiration precautions Continue antibiotics Blood cultures showed no growth after 72 hours Incentive spirometry Monitor renal function. Monitor electrolytes. Supplement as necessary. Monitor ins and outs. Monitor INR goal 2-3 On warfarin with Lovenox bridge DVT prophylaxis. Therapeutic Lovenox bridge, on warfarin Prognosis: Poor given patient's multiple co-morbidities. Rest of plan per hospitalist and other consultants. Thank you Dr. Queen for allowing me to participate in this patient's care. Further recommendations will depend on the patient's clinical course. Please do not hesitate to contact me if you have any questions or concerns. This medical document was created using an electronic medical record system with [employer] dictation system. Although these documentations are being carefully reviewed, there may still be some phonetic and typographical changes. The errors are purely typographical, due to imperfection on the software program, and do not reflect any compromise in the patient's medical care. Dietary Evaluation Review Comments: Continue current plan of care Expected Outcomes/Goals: To meet >75% estimated needs Fu 3-5 days Plan discussed with: Patient, Other (CASSIE Murray) JEROME HAWKINS MD Dec 02, 2024 20:13
--- NOTE | 2024-12-04 04:15 | DVHPN2 ---
Progress Note - Dictate Date Seen: Dec 03, 2024 Has the PT tested + for MRSA If YES, has PT been informed?: No Medical Necessity Reason Pt with a Central, PICC or Fol: No Subjective Patient seen and examined at bedside. Breathing comfortably on room air. Overnight events reviewed. vital signs Vital Sign Date Time Temp Pulse Resp B/P (MAP) Pulse Ox O2 Delivery O2 Flow Rate FiO2 12/02/24 17:00 98.4 70 17 116/69 (85) 98 98.4 12/02/24 10:17 Room Air 12/02/24 10:17 0 21 medications Current Medications Medications Dose Ordered Sig/Tere Route Start Time Stop Time Status Last Admin Dose Admin Warfarin Sodium 5 mg DAILY@17 PO 12/01/24 09:00 UNV objective Gen.: Patient lying in bed in no apparent distress. Breathing on room air. Head: Normocephalic, atraumatic. Eyes: EOMI/PERRLA. Ears: Normal hearing. Normal anatomy. Neck/trachea: Trachea midline, supple. Nose: Normal external anatomy. Mouth: Moist mucous membranes. Chest: Decreased air entry bilaterally. No wheezing or rhonchi. Cardiovascular: Positive S1, positive S2. Regular rate and rhythm. Abdomen: Positive bowel sounds in all 4 quadrants. Soft, non-tender, non- distended. : Deferred. Rectal: Deferred. Skin: Warm, dry. Intact. Extremities: 2+ radial pulses bilaterally. No lower extremity edema. Neuro: Awake, alert, oriented x3. No gross motor or sensory deficits. Cranial nerves II through XII intact. Gait not assessed. laboratory and microbiology Laboratory Tests 12/02/24 05:20 Test 12/02/24 05:20 Range/Units Serum Glucose 76 74-106 mg/dL Assessment/Plan Impression: Acute hypoxic respiratory failure Pulmonary emboli, bilateral lower lobe subsegmental Deep vein thrombosis in the left lower extremity Acute metabolic/toxic encephalopathy Acute transaminitis Acute delirium Urinary tract infection Events: Remains on room air Supplemental oxygen PRN No distress Continue bronchodilators Continue antibiotics On antihypertensive medication Therapeutic Lovenox bridge, on warfarin Monitor INR Patient is being transferred to [place]. Labs and imaging reviewed. Rest of plan as noted below. Plan: Supplemental oxygen PRN Titrate to keep O2 sats above 92%. Head of bed elevation Aspiration precautions Continue antibiotics Blood cultures showed no growth after 72 hours Incentive spirometry Monitor renal function. Monitor electrolytes. Supplement as necessary. Monitor ins and outs. Monitor INR goal 2-3 On warfarin with Lovenox bridge DVT prophylaxis. Therapeutic Lovenox bridge, on warfarin Prognosis: Poor given patient's multiple co-morbidities. Rest of plan per hospitalist and other consultants. Thank you Dr. Queen for allowing me to participate in this patient's care. Further recommendations will depend on the patient's clinical course. Please do not hesitate to contact me if you have any questions or concerns. This medical document was created using an electronic medical record system with [employer] dictation system. Although these documentations are being carefully reviewed, there may still be some phonetic and typographical changes. The errors are purely typographical, due to imperfection on the software program, and do not reflect any compromise in the patient's medical care. Dietary Evaluation Review Comments: Continue current plan of care Expected Outcomes/Goals: To meet >75% estimated needs Fu 3-5 days JEROME HAWKINS MD Dec 04, 2024 04:15
== END 2024-12-02 20:03 | disposition short-term general hospital (02) | DRG 871 ==
LOC: ER 16:56 → EDBD 16:56 → OVERFLOW 22:11 → TELE-WESTW 11-29 16:59
PROVIDERS: ADMIT Internal Medicine; ATTEND Internal Medicine
DX: A41.9 Sepsis, unspecified organism (principal); I26.99 Other pulmonary embolism without acute cor pulmonale; J96.01 Acute respiratory failure with hypoxia; L03.115 Cellulitis of right lower limb; I82.412 Acute embolism and thrombosis of left femoral vein; I82.432 Acute embolism and thrombosis of left popliteal vein; I82.442 Acute embolism and thrombosis of left tibial vein; I10 Essential (primary) hypertension; F39 Unspecified mood [affective] disorder; F10.10 Alcohol abuse, uncomplicated; M10.9 Gout, unspecified; E03.9 Hypothyroidism, unspecified; Z99.81 Dependence on supplemental oxygen; Z79.899 Other long term (current) drug therapy; Y90.9 Presence of alcohol in blood, level not specified
CPT/HCPCS: 36415; 36600; 70450; 70551; 71275; 72195; 73630; 74181; 76705; 80053; 80061; 80074; 80307; 80320; 81001; 82105; 82140; 82306; 82378; 82550; 82607; 82746; 82805; 83036; 83605; 83735; 84100; 84154; 84439; 84443; 84484; 84550; 85025; 85610; 85652; 85730; 86141; 86301; 86704; 86706; 86708; 86803; 87040; 87340; 93306; 93925; 93970; 96365; 96375; 97163; G0378